=== PATIENT | female | born 1950 | race Caucasian/White ===

== ENCOUNTER → 2016-07-21 | Outpatient (CLI) | payer OTHER ==
[~2016-07-21] MED LIST: ASCA500 PO; ASPI-232 PO; ATOR10TA88 PO; CLOP1TAB15 PO; ESTR0.5T5 PO; FLUO40CA8 PO; LEVO112T2 PO; NAPR1TAB9 PO; VSC/5 PO
--- NOTE | 2016-07-21 11:00 | DIAGNOSTIC IMAGING REPORT ---
MRI LUMBAR SPINE W/O CONTRAST CLINICAL HISTORY: Low back pain, and gluteal numbness. TECHNIQUE: Sagittal and axial T1, T2 and STIR images were obtained. COMPARISON STUDY: No previous studies for comparison. OBSERVATIONS: The vertebral bodies and posterior elements appear intact. There is no abnormal bony signal present to suggest a marrow replacement process. L1-2: No disc protrusions or extrusions. No evidence of spinal canal or neural foraminal compromise. L2-3: There is a mild circumferential disc bulge. There is no evidence of significant spinal or foraminal stenosis L3-4: There is a mild circumferential disc bulge. There is slight narrowing of the AP diameter of the spinal canal. There is no significant foraminal narrowing L4-5: There is a mild circumferential disc bulge. There is mild facet joint arthropathy. There is mild spinal canal narrowing. There is no significant foraminal narrowing. L5-S1: There is a minimal circumferential disc bulge. There is no evidence of significant spinal or foraminal stenosis. The conus medullaris and cauda equina appear normal. IMPRESSION: Multilevel spondylitic changes with multilevel disc bulges. Minor spinal canal narrowing at the L3-4, and L4-5 levels. Electronically signed by: Dean Carrizales M.D. 07/21/2016 10:59 AM Dictated Date/Time: 07/21/2016 10:55 AM
== END | disposition home or self-care (01) ==
LOC: C.MRI 09:37
PROVIDERS: ATTEND Orthopaedic Surgery Orthopaedic Surgery of the Spine
DX: M54.5 Low back pain (principal)

== ENCOUNTER → 2017-01-09 | Outpatient (CLI) | payer OTHER ==
--- NOTE | 2017-01-09 15:51 | MAMMOGRAPHY REPORT ---
BILATERAL DIGITAL SCREENING MAMMOGRAM WITH CAD: 01/09/2017 CLINICAL HISTORY: Routine screening. Patient has no complaints. TECHNIQUE: Bilateral CC and MLO views were obtained. Current study was also evaluated with a Comput er Aided Detection (CAD) system. COMPARISON: Comparison is made to exams dated: 12/08/2015 mammogram, 12/17/2013 mammogram, 09/14/2012 ma mmogram, 06/09/2011 ultrasound, 06/09/2011 mammogram, and 11/11/2010 mammogram - [facility] ter. BREAST COMPOSITION: The tissue of both breasts is almost entirely fatty. FINDINGS: The breast parenchymal pattern is similar to prior mammograms. No suspicious mass, archite ctural distortion or cluster of microcalcifications is seen. IMPRESSION: ACR BI-RADS CATEGORY 1: NEGATIVE There is no mammographic evidence of malignancy. A 1 year screening mammogram is recommended. The pa tient will receive written notification of the results. Approximately 10% of breast cancers are not detected with mammography. A negative mammographic report should not delay biopsy if a clinically suggestive mass is present. Jo Clement M.D. ay/:01/09/2017 08:32:00 Story Writer: Annelise Woodruff, [facility] letter sent: Normal 1/2 BI-RADS Code: ACR BI-RADS Category 1: Negative
== END | disposition home or self-care (01) ==
LOC: C.MAMM 07:32
PROVIDERS: ATTEND Family Medicine
DX: Z12.31 Encounter for screening mammogram for malignant neoplasm of breast (principal)

== ENCOUNTER 2017-03-21 16:12 | Emergency (ER) | payer OTHER ==
[~2017-03-21] VITALS: Ht 160 cm; Wt 70.5 kg
[~2017-03-21 16:12] MED LIST changes: +ATOR10TA82 PO; -ATOR10TA88 PO
[2017-03-21 16:18] VITALS: TEMP 36.5; Ht 160 cm; Wt 70.5 kg
[2017-03-21] MEDS ORDERED: HYDROCODONE/ACETAMOPHEN 5/325MG TAB PO STA (16:25)
[2017-03-21] MEDS ORDERED: CALC500T72 PO (16:37)
--- NOTE | 2017-03-21 16:58 | DIAGNOSTIC IMAGING REPORT ---
R WRIST MIN 3 VIEWS ROUTINE CLINICAL HISTORY: wrist injury/fall trauma. Pain. COMPARISON: None. DISCUSSION: Severe degenerative change throughout the right wrist. Degenerative sclerosis of the articular services throughout. There is no evidence for soft tissue swelling. No evidence for fracture or dislocation. IMPRESSION: Severe degenerative change. No acute bony abnormality. The above report was generated using voice recognition software. It may contain grammatical, syntax or spelling errors. Electronically signed by: Vladislav Espana M.D. 03/21/2017 4:57 PM Dictated Date/Time: 03/21/2017 4:55 PM
--- NOTE | 2017-03-21 17:15 | EMERGENCY ROOM VISIT NOTE ---
ED Visit Note First contact with patient: 16:19 CHIEF COMPLAINT: Right wrist injury HISTORY OF PRESENT ILLNESS: This 66-year-old female presents to the ER with chief complaint that she got out of bed at 4:00 this morning and fell injuring her right wrist. The patient denies a loss of consciousness or any other injuries. She does not know if she hit her right wrist against a chair or if she tried to catch herself. The patient denies any numbness and tingling in her finger. The patient does admit to prior fracture in her right wrist years ago. She has seen [facility] in the past for other orthopedic needs. She is right-hand dominant. REVIEW OF SYSTEMS: 6 system review was performed and was negative unless stated otherwise in history of present illness. PMH: The patient is healthy; heart disease, hysterectomy, thyroidectomy, knee surgery SOCIAL HISTORY: Patient lives with her . The patient admits to tobacco use but denies any alcohol use. PHYSICAL EXAM: Vital Signs: Were reviewed Reviewed Nurse's notes. GEN.: 66-year -old white female appears in no acute distress. MENTAL Status: Alert and oriented 3. RIGHT WRIST: No gross bony deformity noted. No erythema or edema noted. The patient is tender to palpation over the ulnar aspect of the wrist joint. Limited range of motion secondary to pain. Sensation is intact in the hand. EMERGENCY DEPARTMENT COURSE: The patient was evaluated. The patient was given Posey 5/325 mg one tablet by mouth for pain. X-ray of the right wrist was ordered to by the radiologist and myself. DIAGNOSTICS:R WRIST MIN 3 VIEWS ROUTINE CLINICAL HISTORY: wrist injury/fall trauma. Pain. COMPARISON: None. DISCUSSION: Severe degenerative change throughout the right wrist. Degenerative sclerosis of the articular services throughout. There is no evidence for soft tissue swelling. No evidence for fracture or dislocation. IMPRESSION: Severe degenerative change. No acute bony abnormality. The above report was generated using voice recognition software. It may contain grammatical, syntax or spelling errors. Electronically signed by: Vladislav Espana M.D. 03/21/2017 4:57 PM The patient was informed of the findings. The patient was placed in a wrist lacer splint. The patient was discharged home with her son driving. DIAGNOSIS: Right wrist contusion DISCHARGE INSTRUCTIONS AND TREATMENT: Ice to the swollen area frequently over the next 2 days. Keep arm elevated whenever possible. Ibuprofen, 600 mg every 6 hours if needed for pain. Wear the wrist lacer splint until pain is tolerable without it. If symptoms are not improving in 4-5 days, follow-up with your family doctor or orthopedics. 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: Chronic (2) Peripheral vascular disease Status: Chronic Surgical Problems: (1) History of hysterectomy Status: Resolved (2) History of partial thyroidectomy Status: Resolved (3) History of tubal ligation Status: Resolved Current/Historical Medications Scheduled Atorvastatin (Lipitor), 10 MG PO DAILY Calcium Ascorbate (Vitamin C), 500 MG PO DAILY Clopidogrel (Plavix), 75 MG PO DAILY Fluoxetine (Prozac), 40 MG PO DAILY Levothyroxine Sodium (Synthroid), 112 MCG PO DAILY Scheduled PRN Naproxen (Aleve), 440 MG PO Q4 PRN for Headache or Pain Miscellaneous Medications Aspirin (Aspir-81), 81 MG PO Allergies Coded Allergies: No Known Allergies (Unverified , 04/12/13) Vital Signs Date Time Temp Pulse Resp B/P (MAP) Pulse Ox O2 Delivery O2 Flow Rate FiO2 03/21/17 16:18 36.5 83 18 145/75 95 Room Air Medications Administered Medications (Trade) Dose Ordered Sig/Tami Route Start Time Stop Time Status Last Admin Dose Admin Acetaminophen/ Hydrocodone Bitart (Posey 5/325 Tab) 1 tab NOW STAT PO 03/21/17 16:25 03/21/17 16:26 DC 03/21/17 16:41 1 TAB Departure Information Referrals Susy Bates D.O. (PCP) Patient Instructions [facility]
[2017-03-21 17:36] VITALS: BP 135/71; PULSE 80; O2SAT 96
== END 2017-03-21 17:42 | disposition home or self-care (01) ==
LOC: C.EDB 16:13 → C.EDD 17:42
DX: S60.211A Contusion of right wrist, initial encounter (principal); W19.XXXA Unspecified fall, initial encounter; I51.9 Heart disease, unspecified; I73.9 Peripheral vascular disease, unspecified; F17.200 Nicotine dependence, unspecified, uncomplicated; Z87.81 Personal history of (healed) traumatic fracture; Z90.710 Acquired absence of both cervix and uterus; Z98.51 Tubal ligation status; Z98.890 Other specified postprocedural states; Z79.899 Other long term (current) drug therapy

== ENCOUNTER → 2017-07-12 | Outpatient (CLI) | payer OTHER ==
[~2017-07-12] MED LIST changes: -ASCA500 PO; +CALC500T72 PO; -ESTR0.5T5 PO; -VSC/5 PO
--- NOTE | 2017-07-12 13:18 | DIAGNOSTIC IMAGING REPORT ---
PET/CT HISTORY: NON SMALL CELL LUNG CANCER TECHNIQUE: PET/CT was performed from the base of the skull through the pelvis following the intravenous administration of 15.98 mCi of F18-FDG. Non-contrast CT imaging was performed over the same range without breath-hold for attenuation correction of PET images and anatomic correlation, but not for primary interpretation as it is not of standard diagnostic quality. CT DOSE: COMPARISON: None. FINDINGS: HEAD AND NECK: Symmetric FDG perfusion within the brain. There are few lower cervical/supraclavicular FDG avid lymph nodes. Dominant left supraclavicular lymph node measures 1.2 cm and demonstrates an SUV max of 7. Dominant right lower cervical lymph node measures 8 mm demonstrates an SUV max of 3. CHEST: Bilateral superior mediastinal lymphadenopathy demonstrating an SUV max of 7.8. There is no FDG avid 1.5 cm anterior mediastinal lymph node demonstrating an SUV max of 4.4. Right peritracheal lymphadenopathy with the largest lymph node measuring 2 cm demonstrating an SUV max of 9.8. There is also right hilar lymphadenopathy with an SUV max of 6. Subcarinal lymphadenopathy demonstrated to be max of 9.3. Large FDG avid right lower lobe mass which measures 5.7 x 5.4 cm. This demonstrates an SUV max of 14. There is no adjacent FDG avid 1.4 cm nodule within the superior segment of the right lower lobe. There is a 5 mm solid nodule within the left lower lobe on image 91. This does not demonstrate abnormal FDG uptake but is likely below the partial for PET imaging. Multiple scattered groundglass nodular densities seen throughout the lungs. These do not demonstrate abnormal FDG uptake but are likely also below the threshold for PET imaging. ABDOMEN/PELVIS: No FDG avid hepatic or splenic masses. Normal adrenal glands. The kidneys and pancreas are unremarkable. Moderate degenerative uptake associated with a few periportal lymph nodes. Dominant periportal lymph node on image 133 measures 8 mm and demonstrates an SUV max of 3. MUSCULOSKELETAL: There is no FDG-avid or destructive bone lesion. IMPRESSION: 1. A 5.7 x 5.4 cm FDG avid right lower lobe mass. 2. There is an additional 1.4 cm FDG avid nodule within the right lower lobe consistent with a metastatic focus. 3. Bilateral lower cervical/supraclavicular, mediastinal, and right hilar lymphadenopathy with associated FDG uptake consistent with metastatic disease. 4. A 5 mm solid nodule within the left lower lobe. This does not demonstrate FDG uptake but is likely below the threshold for PET imaging. Follow-up is recommended. 5. Multiple additional scattered groundglass nodular densities seen throughout the lungs. This favors inflammatory/infectious change. However, this bears watching on future examinations to exclude the less likely possibility of neoplastic disease. 6. A few periportal lymph nodes which are not significantly enlarged but demonstrate mild FDG uptake. This is nonspecific. Electronically signed by: Mele Camacho M.D. 07/12/2017 1:16 PM Dictated Date/Time: 07/12/2017 12:42 PM
== END | disposition home or self-care (01) ==
LOC: C.PET 08:53
PROVIDERS: ATTEND Family Medicine
DX: C79.9 Secondary malignant neoplasm of unspecified site (principal); C34.91 Malignant neoplasm of unspecified part of right bronchus or lung

== ENCOUNTER → 2017-07-17 | Outpatient (CLI) | payer OTHER ==
[~2017-07-17] MED LIST changes: +GADAVIST IV PRN; +LEVO137T3 PO
--- NOTE | 2017-07-17 19:59 | DIAGNOSTIC IMAGING REPORT ---
MRI OF THE BRAIN WITHOUT AND WITH IV CONTRAST CLINICAL HISTORY: Headache, blurred vision, lung carcinoma. COMPARISON STUDY: 07/27/2012 TECHNIQUE: MRI of the brain was performed from the vertex to the skull base utilizing various T1 and T2 weighted sequences. Following the IV administration of 7 mL of Gadavist contrast, additional enhanced images were obtained. FINDINGS: Sagittal T1, axial diffusion, proton density and T2 weighted axial, coronal FLAIR, and pre and post axial T1-weighted images were acquired. These were supplemented with post gadolinium coronal T1 weighted images. No intra or extra-axial mass lesions are visualized. Axial diffusion-weighted images reveal no evidence of acute or subacute infarction. There is no evidence of ventricular dilatation. Proton density T2-weighted and FLAIR images reveal no significant intraparenchymal signal abnormalities There are no abnormal flow voids. There is no evidence of pathologic enhancement. There are mild chronic inflammatory changes within the right sphenoid IMPRESSION: 1. No acute intracranial findings 2. No evidence of intracranial metastasis Electronically signed by: Dean Carrizales M.D. 07/17/2017 7:58 PM Dictated Date/Time: 07/17/2017 7:55 PM
== END | disposition home or self-care (01) ==
LOC: C.MRI 18:54
PROVIDERS: ATTEND Internal Medicine Hematology & Oncology
DX: C34.31 Malignant neoplasm of lower lobe, right bronchus or lung (principal)

== ENCOUNTER → 2017-08-07 | Day surgery (SDC) | payer OTHER ==
[2017-08-04 10:26] VITALS: BMI 27.0
[~2017-08-07] VITALS: Ht 161.3 cm; Wt 70.5 kg
[~2017-08-07] MED LIST changes: +ACETAMINOPHEN 325 MG TAB PO PRN; +ASCO1CAP3 PO; +ATROPINE SULFATE 0.1 MG/ML 5ML SYR IV PRN; +BACITRACIN OINT 15 GM TUBE ONE; +BUPIVACAINE 0.5 % 5 MG/1 ML MPF 30ML VIAL ONE; -CALC500T72 PO; +CEFAZOLIN SOD 2000MG/15 ML IV PUSH IV ONE; +EpHEDrine SULFATE INJ 50 MG/ML AMP IV PRN; +FENTANYL CITRATE INJ 50 MCG/1 ML 2 ML VIAL ONE; -GADAVIST IV PRN; +LACTATED RINGER'S 1000ML 1,000 ML IV SCH; -LEVO112T2 PO; +LIDOCAINE HCL 1% 20 ML VIAL ONE; +LIDOCAINE HCL 2% 2 ML VIAL (20MG/ML) ONE; +LORA-741 PO; +MIDAZOLAM HCL 1 MG/ML 2ML VIAL ONE; +MoRPHine SULFATE 2 MG/ML CARP IV PRN; +MoRPHine SULFATE 4 MG/ML 1 ML CARP\\VIAL IV PRN; -NAPR1TAB9 PO; +ONDANSETRON INJ 2 MG/ML 2 ML VIAL IV PRN; +ONDANSETRON INJ 2 MG/ML 2 ML VIAL ONE; +OXYC-57 PO; +OXYCODONE/ACETAMINOPHEN 5-325 TAB PO PRN; +PROPOFOL IV EMULSION 10 MG/ML 20 ML VIAL IV ONE
[2017-08-07 07:32] VITALS: BP 126/72; PULSE 72; TEMP 36.6; O2SAT 96; Ht 161.3 cm; Wt 70.5 kg
--- NOTE | 2017-08-07 08:59 | History & Physical Bridge Note ---
H&P Re-Evaluation Bridge Note: I have examined the patient, reviewed the History & Physical and in the interval since the performance of the History & Physical I have noted the following changes of clinical significance: No changes noted
--- NOTE | 2017-08-07 10:17 | [facility] Post Operative Brief Note ---
Immediate Operative Summary Operative Date Aug 07, 2017. Pre-Operative Diagnosis Diagnosis Lung Cancer Post-Operative Diagnosis Diagnosis Lung Cancer Procedure(s) Performed A-Port Catheter Insertion Surgeon Dr. Evelin Morales Mold Injector Surgeon(s) Leah Mcknight PA-C Estimated Blood Loss 5 ml Findings Consistent with Post-Op Diagnosis Fluids (cc crystalloids) 500ml Specimens No specimens per surgeon. Drains None Anesthesia Type MAC Complication(s) none Disposition Accompanied Pt To Recover: yes Disposition: Recovery Room / PACU
--- NOTE | 2017-08-07 10:27 | Discharge Instructions ---
Discharge Instructions Date of Service Aug 07, 2017. Admission Reason for Admission: Circulatory System Disorder Discharge Discharge Diagnosis / Problem: lung cancer Discharge Goals Goal(s): Decrease discomfort, Improve function Activity Recommendations Activity Limitations: per Instructions/Follow-up section No heavy lifting or repetitive movement with left arm for one week, avoid lifting left arm above head for one week No strenuous activity for 1 week No submerging incision underwater for 2 weeks (no bathing, swimming, or hot tubs ) No driving while taking narcotic pain medication or until you are pain free . Instructions / Follow-Up Instructions / Follow-Up You may shower in 4 days, sponge bath and wash hair in meantime Leave dressing on for 4 days and then remove and shower There are steri strips on incision, remove them in 7 days IF they plan to use your port for chemotherapy sooner than above recommendation that is fine just keep incision clean/dry/ and covered You will be given Narcotic pain medication as needed for moderate to severe pain , you may take extra strength Ibuprofen/Tylenol as needed for mild pain. Narcotic pain medication may make you drowsy and can cause constipation. Follow-up in surgical office in 1 week, please call office at [phone] if you do not already have an appointment Current Hospital Diet Patient's current hospital diet: Discharge Diet Recommended Diet: Regular Diet Procedures Procedures Performed: A-Port Catheter Insertion Pending Studies Studies pending at discharge: no Medical Emergencies . Who to Call and When: Medical Emergencies: If at any time you feel your situation is an emergency, please call 911 immediately. . Non-Emergent Contact Non-Emergency issues call your: Primary Care Provider, Surgeon Call Non-Emergent contact if: you have a fever, temperature is above 101, your pain is not controlled, your pain is worsening, your pain is unusual for you, wound has increased drainage, wound has increased redness, wound has increased pain . "Provider Documentation" section prepared by Leah Mcknight. . [place] Drug Monitoring Program Search Results: patient reviewed within database, no issues identified
--- NOTE | 2017-08-07 10:39 | DIAGNOSTIC IMAGING REPORT ---
CHEST ONE VIEW PORTABLE HISTORY: 66 years-old Female s/p left subclavian aport insertion status post placement of a left subclavian Jzzspa-k-Qafz catheter COMPARISON: PET CT 07/12/2017, CT chest 07/01/2017 TECHNIQUE: Portable AP view of the chest FINDINGS: Status post placement of a left subclavian Upcako-m-Hmtm catheter with distal tip projecting to the right of midline in the region of the mid SVC. No postprocedural pneumothorax identified. Cardiac silhouette is within normal limits. Lungs are mildly hypoinflated. The left lung is generally clear. Masslike opacity of the right lower lobe with suspected trace right pleural effusion. Bones of the chest appear grossly intact. IMPRESSION: 1. Status post placement of a left subclavian Ocxvie-e-Nbpm catheter with distal tip terminating in the region of the mid SVC. No postprocedural pneumothorax identified. 2. Opacity of the right lower lobe likely correlates with large mass seen on comparison PET CT with suspected trace right pleural effusion. The above report was generated using voice recognition software. It may contain grammatical, syntax or spelling errors. Electronically signed by: Matteo Walker M.D. 08/07/2017 10:38 AM Dictated Date/Time: 08/07/2017 10:36 AM
--- NOTE | 2017-08-07 10:59 | Anesthesiology Progress Note ---
Anesthesia Post Op Note Date & Time Aug 07, 2017 at 10:59 Vital Signs Pain Intensity: 0 Vital Signs Past 12 Hours Date Time Temp Pulse Resp B/P (MAP) Pulse Ox O2 Delivery O2 Flow Rate FiO2 08/07/17 10:45 36.2 66 26 106/66 92 Room Air 08/07/17 10:40 36.2 69 27 108/59 92 Room Air 08/07/17 10:30 65 24 101/65 98 Nasal Cannula 2 08/07/17 10:24 36.6 62 16 115/53 95 Nasal Cannula 2 08/07/17 07:32 36.6 72 18 126/72 (90) 96 Room Air Notes Mental Status: alert / awake / arousable, participated in evaluation Pt Amnestic to Procedure: Yes Nausea / Vomiting: adequately controlled Pain: adequately controlled Airway Patency, RR, SpO2: stable & adequate BP & HR: stable & adequate Hydration State: stable & adequate Anesthetic Complications: no major complications apparent
[2017-08-07 11:00] VITALS: BP 113/54; PULSE 64; TEMP 36.7; O2SAT 92
[2017-08-07 11:30] VITALS: BP 102/60; PULSE 69; TEMP 36.8; O2SAT 94
--- NOTE | 2017-08-07 13:30 | OPERATIVE REPORT ---
DATE OF OPERATION: 08/07/2017 PREOPERATIVE DIAGNOSIS: Lung cancer, in need of port reinsertion. POSTOPERATIVE DIAGNOSIS: Lung cancer, in need of port reinsertion. OPERATION: Insertion of port on left subclavian vein. SURGEON: Evelin Morales MD. AUDIO VIDEO TECHNICIAN: Leah Mcknight PA-C. ANESTHESIA: Conscious sedation plus local. ESTIMATED BLOOD LOSS: About 5 mL. FINDINGS: Patent left subclavian vein. COMPLICATIONS: None. INDICATIONS FOR THE PROCEDURE: This is a 66 years old female with a diagnosis of lung cancer. Patient needs the port reinsertion for chemo. I did talk to the patient about the benefits, the risks and alternatives of procedure. I indicated the risks that may include but not limited such as bleeding, infection, injury to vessel, dysfunction of catheter, injury to the lung. Patient understands. She signed informed consent and I answered all questions. DETAILS OF PROCEDURE: We brought the patient to the OR, put the patient in the supine position. Patient received SCD on bilateral legs to prevent DVT. Also, patient received 2 grams Ancef IV for prophylactic antibiotic. Patient received conscious sedation by the anesthesiology. The left side of neck and upper chest was prepped and draped in routine sterile fashion. After time out, I injected the local anesthesia on the right upper chest with 1% lidocaine mixed with 0.5% Marcaine then I used a 15-gauge needle to puncture the subclavian vein and easy blood return. At first, we put the patient in Trendelenburg first then after that we punctured the vein and easy blood returned. Then passed the wire and used fluoro to confirm the wire go to the SVC. Then I removed the needle, created the pouch for the port. I made an incision about 3 cm and once we created the pouch then we sized the catheter and used a dilator sheath to pass the wire and remove the wire and they were sheathed again. Then we passed the catheter towards the sheath. Then we removed the sheath and connected the catheter to the port. I used a 2-0 Prolene to fix the port in the 3 points on the chest wall and then we did the fluoro guidance again, good position on the tip of the SVC and then we punctured the port and easy blood returned. Then we injected 10 mL normal saline with heparin. Hemostasis obtained, closed the incision by using 2-0 Vicryl subcutaneous layer, continue running, closed skin by using 4-0 Vicryl continue running. We put the dressing on. The patient tolerated the procedure well. After procedure, patient transferred to recovery room in stable condition and all the instrument, needle and sponge count correct x2 at the end of case and after procedure, I did talk to patient's family member about OR finding and procedure we did, they understand. I attest to the content of the Intraoperative Record and any orders documented therein. Any exceptions are noted below. RAFY
== END | disposition home or self-care (01) ==
LOC: C.ACU 07:13
PROVIDERS: ATTEND Surgery
DX: C34.31 Malignant neoplasm of lower lobe, right bronchus or lung (principal); I70.219 Atherosclerosis of native arteries of extremities with intermittent claudication, unspecified extremity; E89.0 Postprocedural hypothyroidism; E78.5 Hyperlipidemia, unspecified; F41.9 Anxiety disorder, unspecified; Z90.710 Acquired absence of both cervix and uterus; Z80.6 Family history of leukemia; Z82.49 Family history of ischemic heart disease and other diseases of the circulatory system; Z82.3 Family history of stroke; Z83.79 Family history of other diseases of the digestive system; Z83.3 Family history of diabetes mellitus; F17.200 Nicotine dependence, unspecified, uncomplicated; Z79.82 Long term (current) use of aspirin; Z79.02 Long term (current) use of antithrombotics/antiplatelets; J44.9 Chronic obstructive pulmonary disease, unspecified; I10 Essential (primary) hypertension

== ENCOUNTER 2017-08-21 11:01 | Inpatient (IN) | payer OTHER ==
[~2017-08-21] VITALS: Ht 162.6 cm; Wt 68.9 kg
[~2017-08-21 11:01] MED LIST changes: -ACETAMINOPHEN 325 MG TAB PO PRN; -ATROPINE SULFATE 0.1 MG/ML 5ML SYR IV PRN; -BACITRACIN OINT 15 GM TUBE ONE; -BUPIVACAINE 0.5 % 5 MG/1 ML MPF 30ML VIAL ONE; -CEFAZOLIN SOD 2000MG/15 ML IV PUSH IV ONE; -EpHEDrine SULFATE INJ 50 MG/ML AMP IV PRN; -FENTANYL CITRATE INJ 50 MCG/1 ML 2 ML VIAL ONE; -LACTATED RINGER'S 1000ML 1,000 ML IV SCH; -LIDOCAINE HCL 1% 20 ML VIAL ONE; -LIDOCAINE HCL 2% 2 ML VIAL (20MG/ML) ONE; -LORA-741 PO; -MIDAZOLAM HCL 1 MG/ML 2ML VIAL ONE; -MoRPHine SULFATE 2 MG/ML CARP IV PRN; -MoRPHine SULFATE 4 MG/ML 1 ML CARP\\VIAL IV PRN; +ONDA-170 PO; -ONDANSETRON INJ 2 MG/ML 2 ML VIAL IV PRN; -ONDANSETRON INJ 2 MG/ML 2 ML VIAL ONE; -OXYCODONE/ACETAMINOPHEN 5-325 TAB PO PRN; +PROC1TAB5 PO; -PROPOFOL IV EMULSION 10 MG/ML 20 ML VIAL IV ONE
[2017-08-21] MEDS ORDERED: DXM/4 PO (11:24)
[2017-08-21] MEDS ORDERED: SODIUM CHLORIDE 0.9% 1000ML 2,000 ML IV STA (11:29)
[2017-08-21] MEDS ORDERED: LIDOCAINE HCL 2% VISC SOLN 20 ML UDC PO STA (11:31)
[2017-08-21] MEDS ORDERED: ALUMINUM/MAGNESIUM SUSP 30 ML UDC PO STA (11:31)
--- NOTE | 2017-08-21 11:51 | DIAGNOSTIC IMAGING REPORT ---
CHEST ONE VIEW PORTABLE CLINICAL HISTORY: EVALUATE ALTERED MENTAL STATUS/WEAKNESS COMPARISON STUDY: PET/CT July 12, 2017 and chest radiograph August 07, 2017. FINDINGS: A left subclavian Kzqduk-c-Mveo is in place. There is no pneumothorax or pleural effusion. A 5.2 cm right lower lobe mass is again noted. There is no pneumothorax or pleural effusion. There is no evidence for pulmonary edema. Mild mediastinal widening is unchanged. IMPRESSION: Redemonstration of a 5.2 cm right lower lobe mass and mild mediastinal widening. Electronically signed by: Josiah Marquez M.D. 08/21/2017 11:49 AM Dictated Date/Time: 08/21/2017 11:48 AM
[2017-08-21 12:17] LABS: BASO % 0.2 %; BASO ABS # 0.02 K/uL (0-0.2); EOS % 2.5 %; HEMATOCRIT 41.7 % (37-47); HEMOGLOBIN 14.4 g/dL (12.0-16.0); IG# 0.02 K/uL (0.00-0.02); LYMPH % 10.5 %; LYMPH ABS # 0.85 K/uL (1.2-3.4); MEAN CELL VOLUME 88.2 fL (80-100); MEAN CORPUSCULAR HEMOGLOBIN 30.4 pg (25-34); MEAN CORPUSCULAR HGB CONC 34.5 g/dl (32-36); MEAN PLATELET VOLUME 9.1 fL (7.4-10.4); MONO % 4.6 %; MONO ABS # 0.37 K/uL (0.11-0.59); NEUT ABS # 6.64 K/uL (1.4-6.5); PLATELET COUNT 242 K/uL (130-400); RED CELL DISTRIBUTION WIDTH CV 14.2 % (11.5-14.5)
[2017-08-21 12:27] LABS: INR 0.9 (0.9-1.1); PTT PATIENT 26.6 SECONDS (21.0-31.0)
[2017-08-21 12:32] LABS: ALBUMIN 3.1 gm/dl (3.4-5.0); ALT/SGPT 21 U/L (12-78); AST/SGOT 10 U/L (15-37); BLOOD UREA NITROGEN 20 mg/dl (7-18); CALCIUM 8.4 mg/dl (8.5-10.1); CARBON DIOXIDE 28 mmol/L (21-32); CREATININE 0.89 mg/dl (0.60-1.20); GLUCOSE 97 mg/dl (70-99); POTASSIUM 4.4 mmol/L (3.5-5.1); SODIUM 134 mmol/L (136-145)
[2017-08-21 12:43] LABS: ALKALINE PHOSPHATASE 147 U/L (45-117); TOTAL PROTEIN 7.2 gm/dl (6.4-8.2)
[2017-08-21] MEDS ORDERED: ONDANSETRON INJ 2 MG/ML 2 ML VIAL IV PRN (14:45)
[2017-08-21] MEDS ORDERED: LIDOCAINE HCL 2% VISC SOLN 20 ML UDC MT PRN (14:45)
[2017-08-21] MEDS ORDERED: OXYC1TAB3 PO (14:56)
[2017-08-21] MEDS ORDERED: OXYCODONE HCL IR 5 MG TAB (IMMEDIATE RELEASE) PO PRN (15:00)
[2017-08-21] MEDS ORDERED: ACETAMINOPHEN IV 650 MG in EMPTY BAG 0 ML IV PRN (15:00)
--- NOTE | 2017-08-21 15:20 | History and Physical ---
History & Physical Date & Time of Service: Aug 21, 2017 at 14:57 Chief Complaint: Illness Primary Care Physician: Susy Bates D.O. History of Present Illness Source: patient, spouse, clinic records, hospital records The patient is a 66-year-old female with lung cancer, stage III, who is currently being treated with chemotherapy and radiation. Her radiation treatments started 2 weeks ago. As of 3 days ago she described having some loss of voice and feeling that food and liquids were getting stuck low down in her esophagus. This was associated with substernal chest pain in that area without radiation. This was also associated with pain with swallowing. She subsequently has not eaten or drank much in the last 3 days and developed some lightheadedness today as well as some generalized weakness prompting ER visit. She denies any associated symptoms with the chest pain including no sweating or shortness of breath. She does have a history of peripheral vascular disease but no history of CAD and is currently taking aspirin and Plavix as well as Lipitor. She is undergoing chemotherapy with carboplatin and paclitaxel weekly with last dose on 08/17. She was presenting to radiation oncology this morning but did not receive the treatment and was sent to the ER instead. Upon arrival to the ER she was noted to have a blood pressure of 97 over's T4 and a heart rate of 83 she was saturating well on room air and was afebrile. She was given IV fluids with an improvement in her blood pressure into the 120s systolic. She otherwise denies any fever, chills, nausea, vomiting, diarrhea, changes in her stool, headaches, or recent illnesses. She is still an active smoker. 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 Status: Chronic (2) Lung cancer Status: Chronic (3) Peripheral vascular disease Status: Chronic Surgical Problems: (1) History of hysterectomy Status: Resolved (2) History of partial thyroidectomy Status: Resolved (3) History of tubal ligation Status: Resolved Family History FH: CAD (coronary artery disease) FATHER FH: leukemia MOTHER Social History Smoking Status: Current Every Day Smoker Smokeless Tobacco Use: No Alcohol Use: none Drug Use: none Marital Status: Housing status: lives alone Occupational Status: retired Immunizations History of Influenza Vaccine: Unknown History of Tetanus Vaccine?: Yes History of Pneumococcal: No History of Hepatitis B Vaccine: Yes Allergies Coded Allergies: No Known Allergies (Unverified , 08/21/17) Home Medications Scheduled Ascorbic Acid (Vitamin C), 500 MG PO QAM Aspirin (Aspir-81), 81 MG PO QAM Atorvastatin (Lipitor), 20 MG PO QAM Clopidogrel (Plavix), 75 MG PO QAM Dexamethasone (Decadron), 1 DOSE PO UD Fluoxetine (Prozac), 40 MG PO QAM Levothyroxine Sodium (Levothyroxine Sodium), 137 MCG PO QAM Scheduled PRN Ondansetron Hcl (Zofran), 8 MG PO Q8 PRN for Nausea Oxycodone Immediate Rel Tab (Roxicodone Ir), 1 TAB PO Q6H PRN for Pain Prochlorperazine Maleate (Compazine), 10 MG PO Q6 PRN for Nausea Review of Systems At least ten systems were reviewed and negative except as indicated in HPI. Physical Exam Vital Signs Date Time Temp Pulse Resp B/P (MAP) Pulse Ox O2 Delivery O2 Flow Rate FiO2 08/21/17 14:46 86 08/21/17 14:41 90 22 93 Room Air 08/21/17 14:31 123/102 08/21/17 14:11 81 24 97 Room Air 08/21/17 14:01 118/71 08/21/17 13:41 85 14 97 Room Air 08/21/17 13:36 81 26 94 Room Air 08/21/17 13:31 110/81 08/21/17 13:06 86 20 97 Room Air 08/21/17 13:01 107/66 08/21/17 12:36 84 24 93 Room Air 08/21/17 12:31 110/63 08/21/17 12:06 98 20 94 Room Air 08/21/17 12:01 87 26 101/69 91 Room Air 08/21/17 11:31 86 16 96/68 95 Room Air 08/21/17 11:15 87 08/21/17 11:10 97/64 08/21/17 11:05 93 Room Air 08/21/17 11:05 36.8 83 15 97/64 93 Room Air General Appearance: WD/WN, + mild distress (Generalized malaise) Head: normocephalic, atraumatic Eyes: normal inspection, PERRL, + pertinent finding (Injected conjunctivae bilaterally, nonicteric sclerae) ENT: normal ENT inspection, hearing grossly normal, pharynx normal Neck: supple, no adenopathy, no JVD, trachea midline Respiratory/Chest: lungs clear, normal breath sounds, no respiratory distress, no accessory muscle use, + pertinent finding (Tenderness in the midsternal region to palpation) Cardiovascular: regular rate, rhythm, no edema, no gallop, no JVD, no murmur, normal peripheral pulses Abdomen/GI: normal bowel sounds, non tender, soft, no organomegaly Back: normal inspection Extremities/Musculoskelatal: normal inspection, no calf tenderness, no pedal edema, normal range of motion Neurologic/Psych: fitter and turner II-XII nml as tested, no motor/sensory deficits, alert, normal mood/affect, oriented x 3 Skin: normal color, warm/dry, no rash Diagnostics Laboratory Results 08/21/17 11:55 Red Blood Count 4.73, Mean Corpuscular Volume 88.2, Mean Corpuscular Hemoglobin 30.4, Mean Corpuscular Hemoglobin Concent 34.5, Mean Platelet Volume 9.1, Neutrophils (%) (Auto) 82.0, Lymphocytes (%) (Auto) 10.5, Monocytes (%) (Auto) 4.6, Eosinophils (%) (Auto) 2.5, Basophils (%) (Auto) 0.2, Neutrophils # (Auto) 6.64, Lymphocytes # (Auto) 0.85, Monocytes # (Auto) 0.37, Eosinophils # (Auto) 0.20, Basophils # (Auto) 0.02 08/21/17 11:55 Test 08/21/17 11:55 White Blood Count 8.10 K/uL (4.8-10.8) Red Blood Count 4.73 M/uL (4.2-5.4) Hemoglobin 14.4 g/dL (12.0-16.0) Hematocrit 41.7 % (37-47) Mean Corpuscular Volume 88.2 fL (80-100) Mean Corpuscular Hemoglobin 30.4 pg (25-34) Mean Corpuscular Hemoglobin Concent 34.5 g/dl (32-36) Platelet Count 242 K/uL (130-400) Mean Platelet Volume 9.1 fL (7.4-10.4) Neutrophils (%) (Auto) 82.0 % Lymphocytes (%) (Auto) 10.5 % Monocytes (%) (Auto) 4.6 % Eosinophils (%) (Auto) 2.5 % Basophils (%) (Auto) 0.2 % Neutrophils # (Auto) 6.64 K/uL (1.4-6.5) Lymphocytes # (Auto) 0.85 K/uL (1.2-3.4) Monocytes # (Auto) 0.37 K/uL (0.11-0.59) Eosinophils # (Auto) 0.20 K/uL (0-0.5) Basophils # (Auto) 0.02 K/uL (0-0.2) RDW Standard Deviation 46.0 fL (36.4-46.3) RDW Coefficient of Variation 14.2 % (11.5-14.5) Immature Granulocyte % (Auto) 0.2 % Immature Granulocyte # (Auto) 0.02 K/uL (0.00-0.02) Prothrombin Time 9.8 SECONDS (9.0-12.0) Prothromb Time International Ratio 0.9 (0.9-1.1) Activated Partial Thromboplast Time 26.6 SECONDS (21.0-31.0) Partial Thromboplastin Ratio 1.0 Anion Gap 5.0 mmol/L (3-11) Estimated GFR () 79.4 Estimated GFR (Non- 68.5 BUN/Creatinine Ratio 22.9 (10-20) Calcium Level 8.4 mg/dl (8.5-10.1) Magnesium Level 2.3 mg/dl (1.8-2.4) Total Bilirubin 0.4 mg/dl (0.2-1) Aspartate Amino Transf (AST/SGOT) 10 U/L (15-37) Alanine Aminotransferase (ALT/SGPT) 21 U/L (12-78) Alkaline Phosphatase 147 U/L (45-117) Troponin I < 0.015 ng/ml (0-0.045) Total Protein 7.2 gm/dl (6.4-8.2) Albumin 3.1 gm/dl (3.4-5.0) Globulin 4.1 gm/dl (2.5-4.0) Albumin/Globulin Ratio 0.8 (0.9-2) Thyroid Stimulating Hormone (TSH) 9.350 uIu/ml (0.300-4.500) Free Thyroxine 0.76 ng/dl (0.80-1.60) Results Past 24 Hours Test 08/21/17 11:55 Range/Units White Blood Count 8.10 4.8-10.8 K/uL Red Blood Count 4.73 4.2-5.4 M/uL Hemoglobin 14.4 12.0-16.0 g/dL Hematocrit 41.7 37-47 % Mean Corpuscular Volume 88.2 80-100 fL Mean Corpuscular Hemoglobin 30.4 25-34 pg Mean Corpuscular Hemoglobin Concent 34.5 32-36 g/dl Platelet Count 242 130-400 K/uL Mean Platelet Volume 9.1 7.4-10.4 fL Neutrophils (%) (Auto) 82.0 % Lymphocytes (%) (Auto) 10.5 % Monocytes (%) (Auto) 4.6 % Eosinophils (%) (Auto) 2.5 % Basophils (%) (Auto) 0.2 % Neutrophils # (Auto) 6.64 1.4-6.5 K/uL Lymphocytes # (Auto) 0.85 1.2-3.4 K/uL Monocytes # (Auto) 0.37 0.11-0.59 K/uL Eosinophils # (Auto) 0.20 0-0.5 K/uL Basophils # (Auto) 0.02 0-0.2 K/uL RDW Standard Deviation 46.0 36.4-46.3 fL RDW Coefficient of Variation 14.2 11.5-14.5 % Immature Granulocyte % (Auto) 0.2 % Immature Granulocyte # (Auto) 0.02 0.00-0.02 K/uL Prothrombin Time 9.8 9.0-12.0 SECONDS Prothromb Time International Ratio 0.9 0.9-1.1 Activated Partial Thromboplast Time 26.6 21.0-31.0 SECONDS Partial Thromboplastin Ratio 1.0 Sodium Level 134 136-145 mmol/L Potassium Level 4.4 3.5-5.1 mmol/L Chloride Level 101 98-107 mmol/L Carbon Dioxide Level 28 21-32 mmol/L Anion Gap 5.0 3-11 mmol/L Blood Urea Nitrogen 20 7-18 mg/dl Creatinine 0.89 0.60-1.20 mg/dl Estimated GFR () 79.4 Estimated GFR (Non- 68.5 BUN/Creatinine Ratio 22.9 10-20 Random Glucose 97 70-99 mg/dl Calcium Level 8.4 8.5-10.1 mg/dl Magnesium Level 2.3 1.8-2.4 mg/dl Total Bilirubin 0.4 0.2-1 mg/dl Aspartate Amino Transf (AST/SGOT) 10 15-37 U/L Alanine Aminotransferase (ALT/SGPT) 21 12-78 U/L Alkaline Phosphatase 147 45-117 U/L Troponin I < 0.015 0-0.045 ng/ml Total Protein 7.2 6.4-8.2 gm/dl Albumin 3.1 3.4-5.0 gm/dl Globulin 4.1 2.5-4.0 gm/dl Albumin/Globulin Ratio 0.8 0.9-2 Thyroid Stimulating Hormone (TSH) 9.350 0.300-4.500 uIu/ml Free Thyroxine 0.76 0.80-1.60 ng/dl Diagnostic Radiology CHEST ONE VIEW PORTABLE CLINICAL HISTORY: EVALUATE ALTERED MENTAL STATUS/WEAKNESS COMPARISON STUDY: PET/CT July 12, 2017 and chest radiograph August 07, 2017. FINDINGS: A left subclavian [id number] is in place. There is no pneumothorax or pleural effusion. A 5.2 cm right lower lobe mass is again noted. There is no pneumothorax or pleural effusion. There is no evidence for pulmonary edema. Mild mediastinal widening is unchanged. IMPRESSION: Redemonstration of a 5.2 cm right lower lobe mass and mild mediastinal widening. EKG SR90, TWI in anterior leads, no ST changes. Impression Assessment and Plan 66-year-old female presents with generalized weakness, difficulty swallowing, pain with swallowing for the last 3 days 1. 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 Will continue with supportive care measures at this time including nothing by mouth except medications,. Will institute therapy with liquid Vicodin as needed, viscous lidocaine as needed, Protonix IV daily, IV Tylenol as needed. As patient is describing a food bolus feeling like it gets stuck in lower esophagus, will order barium at this time. GI was consulted for consideration of endoscopy. 2. Chest pain-this is likely associated with #1, however, with history of peripheral arterial disease and T-wave inversions that are new on EKG will trend serial enzymes and monitor her on telemetry overnight. Repeat EKG in a.m. 3. Generalized weakness-likely secondary to decreased oral intake. Continue supportive care measures, PT/OT evaluation prior to discharge. 4. Hypothyroidism-TSH slightly elevated however will not adjust outpatient dosage inpatient. Will institute Synthroid IV at 50% home dose. 5. Peripheral arterial disease-continue aspirin, Plavix, Lipitor per home regimen. 6. Lung cancer, stage III-we discussed continuing chemotherapy with oncology team. Patient sees Dr. Mcmillan. Would touch base with radiation oncology as patient's symptoms improved. DVT prophylaxis-Lovenox Full code as discussed with patient and her on admission Disposition-tele[facility] Res[facility] Status VTE Prophylaxis Will order VTE Prophylaxis: Yes
--- NOTE | 2017-08-21 15:32 | EMERGENCY ROOM VISIT NOTE ---
History Report prepared by Sylvia: Misha Severino Under the Supervision of: Dr. Reji Lopez M.D. First contact with patient: 11:24 Chief Complaint: WEAKNESS Stated Complaint: ILLNESS Nursing Triage Summary: Pt. arrives by wheelchair from radiation/oncology. She reports worsening of weakness, dehydration, unsteadiness, weakness, trouble swallowing (liquids and solids), and chest discomfort that has worsened since Monday. History of Present Illness The patient is a 66 year old female who presents to the Emergency Room with complaints of constant throat pain s/p radiation treatment occurring three days ago. The patient is currently being treated for stage 3 lung cancer. She is currently receiving chemotherapy (most recent was four days ago) and radiation. Her radiation treatments irritate her throat and make it difficult for her to speak. The patient currently complains of generalized weakness. She was scheduled for radiation today, but was referred to the ED instead due to her symptoms. She reports feeling dehydrated due to her difficulty swallowing. The patient states that her pain increases to a 10/10 with swallowing. She denies urinary symptoms, diarrhea, or fevers. Source of History: patient Onset: A few days ago Position: throat Symptom Intensity: 10/10 with swallowing Timing: constant Modifying Factors (Worsening): other (swallowing) Associated Symptoms: + weakness (generalized ), No fevers, No diarrhea, No urinary symptoms Review of Systems See HPI for pertinent positives & negatives. A total of 10 systems reviewed and were otherwise negative. 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 Social History Smoking Status: Current Every Day Smoker Marital Status: Occupation Status: employed Current/Historical Medications Scheduled Ascorbic Acid (Vitamin C), 500 MG PO QAM Aspirin (Aspir-81), 81 MG PO QAM Atorvastatin (Lipitor), 20 MG PO QAM Clopidogrel (Plavix), 75 MG PO QAM Dexamethasone (Decadron), 1 DOSE PO UD Fluoxetine (Prozac), 40 MG PO QAM Levothyroxine Sodium (Levothyroxine Sodium), 137 MCG PO QAM Scheduled PRN Ondansetron Hcl (Zofran), 8 MG PO Q8 PRN for Nausea Oxycodone Immediate Rel Tab (Roxicodone Ir), 1 TAB PO Q6H PRN for Pain Prochlorperazine Maleate (Compazine), 10 MG PO Q6 PRN for Nausea Allergies Coded Allergies: No Known Allergies (Unverified , 08/21/17) Physical Exam Vital Signs Date Time Temp Pulse Resp B/P (MAP) Pulse Ox O2 Delivery O2 Flow Rate FiO2 08/21/17 14:46 86 08/21/17 14:41 90 22 93 Room Air 08/21/17 14:31 123/102 08/21/17 14:11 81 24 97 Room Air 08/21/17 14:01 118/71 08/21/17 13:41 85 14 97 Room Air 08/21/17 13:36 81 26 94 Room Air 08/21/17 13:31 110/81 08/21/17 13:06 86 20 97 Room Air 08/21/17 13:01 107/66 08/21/17 12:36 84 24 93 Room Air 08/21/17 12:31 110/63 08/21/17 12:06 98 20 94 Room Air 08/21/17 12:01 87 26 101/69 91 Room Air 08/21/17 11:31 86 16 96/68 95 Room Air 08/21/17 11:15 87 08/21/17 11:10 97/64 08/21/17 11:05 93 Room Air 08/21/17 11:05 36.8 83 15 97/64 93 Room Air Physical Exam GENERAL: Patient is in no acute distress. HEENT: No acute trauma, normocephalic atraumatic, mucous membranes moist, no nasal congestion, no scleral icterus. Posterior pharyngeal erythema. No exudate. NECK: No stridor, no adenopathy, no meningismus, trachea is midline. LUNGS: Clear to auscultation bilaterally, no wheeze, no rhonchi, breath sounds equal. HEART: Without murmurs gallops or rubs, regular rate and rhythm. ABDOMEN: Soft, bowel sounds positive, no hernias, no peritonitis. Tender in the epigastrium. EXTREMITIES: No cyanosis or edema, full range of motion of all the joints without pain or difficulty, no signs for acute trauma. NEUROLOGIC: Oriented x 3, no acute motor or sensory deficits, no focal weakness. SKIN: No rash, no jaundice, no diaphoresis. Medical Decision & Procedures ER Provider Diagnostic Interpretation: Radiology results as stated below per my review and radiologist interpretation: CHEST ONE VIEW PORTABLE FINDINGS: A left subclavian [id number] is in place. There is no pneumothorax or pleural effusion. A 5.2 cm right lower lobe mass is again noted. There is no pneumothorax or pleural effusion. There is no evidence for pulmonary edema. Mild mediastinal widening is unchanged. IMPRESSION: Redemonstration of a 5.2 cm right lower lobe mass and mild mediastinal widening. Electronically signed by: Josiah Marquez M.D. 08/21/2017 11:49 AM Laboratory Results 08/21/17 11:55 Red Blood Count 4.73, Mean Corpuscular Volume 88.2, Mean Corpuscular Hemoglobin 30.4, Mean Corpuscular Hemoglobin Concent 34.5, Mean Platelet Volume 9.1, Neutrophils (%) (Auto) 82.0, Lymphocytes (%) (Auto) 10.5, Monocytes (%) (Auto) 4.6, Eosinophils (%) (Auto) 2.5, Basophils (%) (Auto) 0.2, Neutrophils # (Auto) 6.64, Lymphocytes # (Auto) 0.85, Monocytes # (Auto) 0.37, Eosinophils # (Auto) 0.20, Basophils # (Auto) 0.02 08/21/17 11:55 Test 08/21/17 11:55 White Blood Count 8.10 K/uL (4.8-10.8) Red Blood Count 4.73 M/uL (4.2-5.4) Hemoglobin 14.4 g/dL (12.0-16.0) Hematocrit 41.7 % (37-47) Mean Corpuscular Volume 88.2 fL (80-100) Mean Corpuscular Hemoglobin 30.4 pg (25-34) Mean Corpuscular Hemoglobin Concent 34.5 g/dl (32-36) Platelet Count 242 K/uL (130-400) Mean Platelet Volume 9.1 fL (7.4-10.4) Neutrophils (%) (Auto) 82.0 % Lymphocytes (%) (Auto) 10.5 % Monocytes (%) (Auto) 4.6 % Eosinophils (%) (Auto) 2.5 % Basophils (%) (Auto) 0.2 % Neutrophils # (Auto) 6.64 K/uL (1.4-6.5) Lymphocytes # (Auto) 0.85 K/uL (1.2-3.4) Monocytes # (Auto) 0.37 K/uL (0.11-0.59) Eosinophils # (Auto) 0.20 K/uL (0-0.5) Basophils # (Auto) 0.02 K/uL (0-0.2) RDW Standard Deviation 46.0 fL (36.4-46.3) RDW Coefficient of Variation 14.2 % (11.5-14.5) Immature Granulocyte % (Auto) 0.2 % Immature Granulocyte # (Auto) 0.02 K/uL (0.00-0.02) Prothrombin Time 9.8 SECONDS (9.0-12.0) Prothromb Time International Ratio 0.9 (0.9-1.1) Activated Partial Thromboplast Time 26.6 SECONDS (21.0-31.0) Partial Thromboplastin Ratio 1.0 Anion Gap 5.0 mmol/L (3-11) Estimated GFR () 79.4 Estimated GFR (Non- 68.5 BUN/Creatinine Ratio 22.9 (10-20) Calcium Level 8.4 mg/dl (8.5-10.1) Magnesium Level 2.3 mg/dl (1.8-2.4) Total Bilirubin 0.4 mg/dl (0.2-1) Aspartate Amino Transf (AST/SGOT) 10 U/L (15-37) Alanine Aminotransferase (ALT/SGPT) 21 U/L (12-78) Alkaline Phosphatase 147 U/L (45-117) Troponin I < 0.015 ng/ml (0-0.045) Total Protein 7.2 gm/dl (6.4-8.2) Albumin 3.1 gm/dl (3.4-5.0) Globulin 4.1 gm/dl (2.5-4.0) Albumin/Globulin Ratio 0.8 (0.9-2) Thyroid Stimulating Hormone (TSH) 9.350 uIu/ml (0.300-4.500) Free Thyroxine 0.76 ng/dl (0.80-1.60) Laboratory results reviewed by me. Medications Administered Medications (Trade) Dose Ordered Sig/Tami Route Start Time Stop Time Status Last Admin Dose Admin Sodium Chloride 2,000 ml @ 999 mls/hr Q2H1M STAT IV 08/21/17 11:29 08/21/17 13:29 DC 08/21/17 12:03 999 MLS/HR Lidocaine HCl (Viscous Lidocaine 2% Soln) 10 ml NOW STAT PO 08/21/17 11:31 08/21/17 11:32 DC 08/21/17 12:03 10 ML Al Hydroxide/Mg Hydroxide (Maalox Susp) 30 ml NOW STAT PO 08/21/17 11:31 08/21/17 11:32 DC 08/21/17 12:03 30 ML ECG Per My Interpretation Indication: weakness Rate (beats per minute): 90 Rhythm: normal sinus Findings: T-wave inversion (Anterior), other (Diffuse non-specific ST changes. No PVCs. ) Comparison ECG Date: July 27, 2012 Change: Anterior T-wave changes are new. ED Course 1125: The patient was evaluated in room C5. A complete history and physical exam was performed. 1129: Ordered Sodium Chloride 2000 ml @ 999 mls/hr IV. 1131: Ordered Maalox Susp 30 mL PO, Viscous Lidocaine 2% Soln 10 mL PO. 1405: Reevaluated the patient. Discussed results and discharge instructions: she verbalized understanding and agreement. The patient is ready for discharge. Medical Decision The patient is a 66 year old female who presents to the ED with complaints of throat pain. Differential diagnoses considered include radiation esophagitis, reflux esophagitis, cardiac ischemia, anemia, electrolyte imbalance, dehydration and infection. There is no leukocytosis or concerning anemia. No significant electrolyte abnormality, kidney failure or hepatitis. There is no pancreatitis. EKG shows a normal sinus rhythm with some subtle T-wave inversions in the anterior leads, no evidence for acute CO. Cardiac enzyme testing 1 is not consistent with acute cardiac injury. Chest x-ray does not show pneumonia, free air or pneumothorax. The right lung mass was again seen on the chest film. Patient presents with pain with swallowing. Things have progressed to the point where she cannot eat or drink. She has a hard time speaking. She was given IV saline for hydration, this made her feel generally improved. She was given a GI cocktail but this did not really help her swallowing issue. Patient presents mildly hypotensive, dehydrated. She cannot eat or drink. Hospitalization is required. I suspect she has radiation esophagitis. I did speak with case management and the on-call hospitalist. The patient is aware of all her findings. Medication Reconcilliation Current Medication List: was personally reviewed by me Blood Pressure Screening Patient's blood pressure: Low blood pressure Blood pressure disposition: Did not require urgent referral Consults Time Called: 1400 Consulting Physician: Dr. Frank Hawkins Hospitalist Returned Call: [phone] Discussed the patient's case. The patient will be evaluated for further management. Impression Primary Impression: Dehydration Additional Impressions: Inability to swallow Lung cancer S/P radiation therapy Scribe Attestation The scribe's documentation has been prepared under my direction and personally reviewed by me in its entirety. I confirm that the note above accurately reflects all work, treatment, procedures, and medical decision making performed by me. Departure Information Dispostion Being Evaluated By Hospitalist Referrals Susy Bates D.O. (PCP) Patient Instructions My [facility] Health Problem Qualifiers
--- NOTE | 2017-08-21 15:39 | DIAGNOSTIC IMAGING REPORT ---
(BARIUM SWALLOW) ESOPHAGUS CLINICAL HISTORY: feels food getting stuck in lower esophagus, rule out stricturedysphagia COMPARISON STUDY: None FLUOROSCOPY TIME: 1.1 minutes. FINDINGS: Patient initiates the swallowing function well. Esophageal motility is diminished. There is mild esophageal irritability and/or spasm. Gastroesophageal junction is unremarkable. IMPRESSION: 1. Generalized decrease in esophageal motility. 2. Mild esophageal spasm and/or irritability distally. 3. No evidence for an obstructing lesion The above report was generated using voice recognition software. It may contain grammatical, syntax or spelling errors. Electronically signed by: Vladislav Espana M.D. 08/21/2017 3:38 PM Dictated Date/Time: 08/21/2017 3:37 PM
[2017-08-21 16:00] VITALS: BP 124/79; PULSE 95; TEMP 36.8; O2SAT 95
[2017-08-21 16:38] VITALS: BP 124/79; PULSE 95; TEMP 36.8; O2SAT 95
[2017-08-21] MEDS ORDERED: PANTOprazole INJ 40 MG in SYRINGE 0 ML IV ONE (17:30)
[2017-08-21] MEDS: D5NSS + 20MEQ KCL 1,000 ML IV SCH (17:42)
[2017-08-21] MEDS: NYSTATIN SUSP 500,000 U/5 ML UDC PO SCH ×2 (17:46→20:58)
--- NOTE | 2017-08-21 17:57 | Gastrointestinal Consultation ---
Gastrointestinal Consultation Date of Consultation: Aug 21, 2017 Attending Physician: Vanessa Marie Consulting Physician: Nicola Dickson Reason for Consultation: Possible radiation esophagitis w stricture History of Present Illness Patient is a 66 year old female who presented to ED w c/o difficulty and painful swallowing since last Monday. She has hx of stage III lung ca currently undergoing chemo and XRT last dose 08/17. She noticed that since Monday, she's having trouble even swallowing some liquids, felt at times liquids may temporarily get stuck on mid esophagus, and also felt it's painful to swallow. Has associated voice hoarseness as well. Denies any associated nausea, vomiting , abd pain, changes in BM habits. She hasn't been able to tolerate much PO intake and has generalized weakness thus decides to come to ED for evaluation. CXR showed RLL 5cm mass. Esophageal xray showed mild spasm and irritability, decreased motility, no obstructing mass noted. She did have an EGD in 2016 for dysphagia w/o obvious etiology but dilation done to 18mm. She does have evidence of reflux, no Hpylori Past Medical/Surgical History Medical Problems: (1) Contusion of wrist, right Status: Acute (2) Dehydration Status: Acute (3) Inability to swallow Status: Acute (4) Lung cancer Status: Chronic Social History Problems: (1) S/P radiation therapy Status: Acute Past Medical History: Anxiety Claudication RLS Past Surgical History: Thyroidectomy, hysterectomy Family History FH: CAD (coronary artery disease) FATHER FH: leukemia MOTHER Social History Smoking Status: Current Every Day Smoker Drug Use: none Marital Status: Occupation Status: employed Allergies Coded Allergies: No Known Allergies (Unverified , 08/21/17) Current Medications Home Meds and Scripts Medications Dose Route/Sig Max Daily Dose Days Date Category Dose Instructions Roxicodone Ir (Oxycodone HCl) 5 Mg Tab 1 Tab PO Q6H PRN 30 08/21/17 Reported Decadron (Dexamethasone) Unknown Strength Tab 1 Dose PO UD 08/21/17 Reported TAKES THE NIGHT BEFORE CHEMO THERAPY Compazine (Prochlorperazine Maleate) 10 Mg Tab 10 Mg PO Q6 PRN 7 08/15/17 Reported Zofran (Ondansetron HCl) 8 Mg Tab 8 Mg PO Q8 PRN 08/15/17 Reported Vitamin C (Ascorbic Acid) 500 Mg Cap 500 Mg PO QAM 4/6/18 Reported Levothyroxine Sodium 137 Mcg Tab 137 Mcg PO QAM 30 07/21/17 Reported Lipitor (Atorvastatin Calcium) 10 Mg Tab 20 Mg PO QAM 04/28/13 Reported Aspir-81 (Aspirin) 81 Mg Tab 81 Mg PO QAM 07/27/12 Reported Prozac (Fluoxetine HCl) 40 Mg Cap 40 Mg PO QAM 07/27/12 Reported Plavix (Clopidogrel Bisulfate) 75 Mg Tab 75 Mg PO QAM 05/15/10 Reported Review of Systems Constitutional: + weakness, No fever, No chills ENT: + see HPI, + trouble swallowing, + pain on swallowing Respiratory: No cough Cardiac: No chest pain Abdomen: No pain, No nausea, No vomiting Physical Exam Date Time Temp Pulse Resp B/P (MAP) Pulse Ox O2 Delivery O2 Flow Rate FiO2 08/21/17 16:38 36.8 95 18 124/79 95 Room Air 08/21/17 16:00 36.8 95 18 124/79 (94) 95 Room Air 08/21/17 15:55 80 16 114/64 94 08/21/17 14:46 86 08/21/17 14:41 90 22 93 Room Air 08/21/17 14:31 123/102 08/21/17 14:11 81 24 97 Room Air 08/21/17 14:01 118/71 08/21/17 13:41 85 14 97 Room Air 08/21/17 13:36 81 26 94 Room Air 08/21/17 13:31 110/81 08/21/17 13:06 86 20 97 Room Air 08/21/17 13:01 107/66 08/21/17 12:36 84 24 93 Room Air 08/21/17 12:31 110/63 08/21/17 12:06 98 20 94 Room Air 08/21/17 12:01 87 26 101/69 91 Room Air 08/21/17 11:31 86 16 96/68 95 Room Air 08/21/17 11:15 87 08/21/17 11:10 97/64 08/21/17 11:05 93 Room Air 08/21/17 11:05 36.8 83 15 97/64 93 Room Air General Appearance: WD/WN, no apparent distress Eyes: normal inspection, PERRL, EOMI ENT: + pertinent finding (white patches suspicious for zhou noted on oral mucosa) Neck: supple, no JVD, trachea midline Respiratory/Chest: normal breath sounds, no respiratory distress, no accessory muscle use Cardiovascular: regular rate, rhythm, no gallop, no murmur Abdomen: normal bowel sounds, non tender, soft Extremities: normal inspection, no pedal edema, no calf tenderness Neurologic/Psych: alert, normal mood/affect, oriented x 3 Skin: normal color, no jaundice, no rash Laboratory Results Last 24 Hours Test 08/21/17 11:55 White Blood Count 8.10 K/uL Red Blood Count 4.73 M/uL Hemoglobin 14.4 g/dL Hematocrit 41.7 % Mean Corpuscular Volume 88.2 fL Mean Corpuscular Hemoglobin 30.4 pg Mean Corpuscular Hemoglobin Concent 34.5 g/dl Platelet Count 242 K/uL Mean Platelet Volume 9.1 fL Neutrophils (%) (Auto) 82.0 % Lymphocytes (%) (Auto) 10.5 % Monocytes (%) (Auto) 4.6 % Eosinophils (%) (Auto) 2.5 % Basophils (%) (Auto) 0.2 % Neutrophils # (Auto) 6.64 K/uL Lymphocytes # (Auto) 0.85 K/uL Monocytes # (Auto) 0.37 K/uL Eosinophils # (Auto) 0.20 K/uL Basophils # (Auto) 0.02 K/uL RDW Standard Deviation 46.0 fL RDW Coefficient of Variation 14.2 % Immature Granulocyte % (Auto) 0.2 % Immature Granulocyte # (Auto) 0.02 K/uL Prothrombin Time 9.8 SECONDS Prothromb Time International Ratio 0.9 Activated Partial Thromboplast Time 26.6 SECONDS Partial Thromboplastin Ratio 1.0 Sodium Level 134 mmol/L Potassium Level 4.4 mmol/L Chloride Level 101 mmol/L Carbon Dioxide Level 28 mmol/L Anion Gap 5.0 mmol/L Blood Urea Nitrogen 20 mg/dl Creatinine 0.89 mg/dl Estimated GFR () 79.4 Estimated GFR (Non- 68.5 BUN/Creatinine Ratio 22.9 Random Glucose 97 mg/dl Calcium Level 8.4 mg/dl Magnesium Level 2.3 mg/dl Total Bilirubin 0.4 mg/dl Aspartate Amino Transf (AST/SGOT) 10 U/L Alanine Aminotransferase (ALT/SGPT) 21 U/L Alkaline Phosphatase 147 U/L Troponin I < 0.015 ng/ml Total Protein 7.2 gm/dl Albumin 3.1 gm/dl Globulin 4.1 gm/dl Albumin/Globulin Ratio 0.8 Thyroid Stimulating Hormone (TSH) 9.350 uIu/ml Free Thyroxine 0.76 ng/dl Impression Patient is a 66 year old female who presented w dysphagia, odynophagia, voice hoarseness and poor PO intake since last Monday. Hx of stage III lung ca currently on chemo and radiation. Hx of dysphagia in 2016 s/p dilation. Esophageal xray showed decreased esophageal motility and some spasm and possibly irritability. She does appear to have oral candidiasis on exam. Plan - CL diet - Agree w [employer] - Add Nystatin 5mL QID swish and swallow - Protonix 40mg BID - NPO for possible EGD eval tomorrow. Late entry from yesterday. I interviewed and examined pt, reviewed chart and labs. Pt receiving XRT/chemo for lung ca now with dysphagia/odynophagia. Thrush on oral exam. No leukopenia on CBC. Suspect XRT esophagitis, candidal esophagitis.
[2017-08-21] MEDS ORDERED: MoRPHine SULFATE 4 MG/ML 1 ML CARP\\VIAL IV PRN (18:45)
[2017-08-21 20:00] VITALS: O2SAT 95
[2017-08-21] MEDS: PANTOprazole INJ 40 MG in SYRINGE 0 ML IV SCH (20:58)
[2017-08-22] VITALS (11 sets, daily range): BP systolic 97–108; BP diastolic 63–73; PULSE 66–94; TEMP 36.5–36.9; O2SAT 94–95; Ht 162.6 cm; Wt 68.9 kg
[2017-08-22] MEDS: ACETAMINOPHEN/HYDROCODONE ELIX 15 ML/CUP UDP PO PRN ×2 (00:14→08:27)
[2017-08-22] MEDS: D5NSS + 20MEQ KCL 1,000 ML IV SCH (01:56)
[2017-08-22 06:44] LABS: BLOOD UREA NITROGEN 10 mg/dl (7-18); CALCIUM 7.5 mg/dl (8.5-10.1); CARBON DIOXIDE 28 mmol/L (21-32); CREATININE 0.73 mg/dl (0.60-1.20); GLUCOSE 117 mg/dl (70-99); PHOSPHORUS 2.6 mg/dl (2.5-4.9); POTASSIUM 4.4 mmol/L (3.5-5.1); SODIUM 138 mmol/L (136-145)
[2017-08-22] MEDS: NYSTATIN SUSP 500,000 U/5 ML UDC PO SCH ×4 (08:15→20:39)
[2017-08-22] MEDS: PANTOprazole INJ 40 MG in SYRINGE 0 ML IV SCH ×2 (08:25→20:41)
[2017-08-22] MEDS: ASPIRIN 81 MG ECTAB PO SCH ×2 (08:33→13:59)
[2017-08-22] MEDS: ENOXAPARIN 40 MG/0.4 ML SYR SQ SCH (08:33)
[2017-08-22] MEDS: ATORVASTATIN 20 MG TAB PO SCH ×2 (08:33→13:59)
[2017-08-22] MEDS: CLOPIDOGREL BISULFATE 75 MG TAB PO SCH ×2 (08:33→13:59)
[2017-08-22] MEDS: FLUOXETINE HCL 20 MG CAP PO SCH ×2 (08:33→13:59)
[2017-08-22] MEDS ORDERED: LEVOTHYROXINE SODIUM IV SCH (09:00)
[2017-08-22] MEDS ORDERED: PANTOprazole INJ 40 MG in SYRINGE 0 ML IV SCH (11:00)
[2017-08-22] MEDS ORDERED: FENTANYL CITRATE INJ 50 MCG/1 ML 2 ML VIAL ONE (12:33)
--- NOTE | 2017-08-22 12:53 | GI REPORT ---
Procedure Date: 08/22/2017 12:35 PM Procedure: Upper GI endoscopy Indications: Dysphagia Medicines: See the Anesthesia note for documentation of the administered medications Complications: No immediate complications. Estimated Blood Loss: Estimated blood loss: none. Procedure: Pre-Anesthesia Assessment: - ASA Grade Assessment: III - A patient with severe systemic disease. After obtaining informed consent, the endoscope was passed under direct vision. Throughout the procedure, the patient's blood pressure, pulse, and oxygen saturations were monitored continuously. The scope was introduced through the mouth, and advanced to the second part of duodenum. The upper GI endoscopy was accomplished without difficulty. The patient tolerated the procedure well. Findings: Mild erythema in the proximal and mid esophagus, more severe proximally. No ulceration or erosions were seen. No candidiasis was seen. There was a mild ring at the GE juction at 35 cm. This is not narrow enough to cause liquid dysphagia, and was not thought to be the cause of the pt's symptoms; this was not dilated, due to ongoing XRT therapy. The examined stomach and duodenum was normal. Impression: Mild radiation esophagitis. Mild ring. Recommendation: - Discharge patient to floor. Continue Nystatin for oral thrush. Continue supportive care. Diet as tolerated. Will sign off - please reconsult as needed. Nicola Dickson M.D. Nicola Dickson MD 08/22/2017 12:52:39 PM This report has been signed electronically. Note Initiated On: 08/22/2017 12:35 PM I attest to the content of the Intraoperative Record and orders documented therein, exceptions below
[2017-08-22] MEDS ORDERED: PHENYLEPHRINE HCL INJ 10 MG/ML VIAL ONE (12:57)
[2017-08-22] MEDS ORDERED: PROPOFOL IV EMULSION 10 MG/ML 20 ML VIAL IV ONE (12:57)
[2017-08-22] MEDS ORDERED: LIDOCAINE HCL 2% 2 ML VIAL (20MG/ML) ONE (12:57)
--- NOTE | 2017-08-22 13:36 | Anesthesiology Progress Note ---
Anesthesia Post Op Note Date & Time Aug 22, 2017 at 13:35 Vital Signs Pain Intensity: 5.0 Vital Signs Past 12 Hours Date Time Temp Pulse Resp B/P (MAP) Pulse Ox O2 Delivery O2 Flow Rate FiO2 08/22/17 13:10 110 20 111/58 (75) 95 Room Air 08/22/17 12:53 110 16 156/126 (136) 100 Room Air 08/22/17 12:04 36.7 68 18 91/61 (71) 94 Room Air 08/22/17 12:00 94 Room Air 08/22/17 11:50 36.7 66 20 104/69 (81) 95 Room Air 08/22/17 08:00 94 Room Air 08/22/17 07:36 36.5 78 108/73 (85) 94 Room Air 08/22/17 04:00 Room Air 08/22/17 04:00 36.9 74 16 101/65 (77) 95 Room Air Notes Mental Status: alert / awake / arousable, participated in evaluation Pt Amnestic to Procedure: Yes Nausea / Vomiting: adequately controlled Pain: adequately controlled Airway Patency, RR, SpO2: stable & adequate BP & HR: stable & adequate Hydration State: stable & adequate Anesthetic Complications: no major complications apparent
--- NOTE | 2017-08-22 14:59 | Radiation Oncology Progress Nt ---
Radiation Oncology Progress Nt Date of Service Date of Service: Aug 22, 2017. Reason For Admission Dehydration/Poor Oral Intake (Mild esophagitis) Requesting Physician Dr. Spring Subjective Pt evaluation today including: chart review, lab review, review of studies, conversation w/ it consultant, review of inpatient medication list Upper EGD by Dr. Dickson - 08/22/17 - Findings: Mild erythema in the proximal and mid esophagus, more severe proximally. No ulceration or erosions were seen. No candidiasis was seen. There was a mild ring at the GE juction at 35 cm. This is not narrow enough to cause liquid dysphagia, and was not thought to be the cause of the pt's symptoms; this was not dilated, due to ongoing XRT therapy.The examined stomach and duodenum was normal. Impression: Mild radiation esophagitis. Mild ring. Radiation Therapy Has patient started Radiation: Yes Number of Treatments Received: 9 Number of Treatments Planned: 30 Current Chemotherapy: Yes Type of Chemotherapy: Carboplatin / Taxol Objective Vital Signs Date Time Temp Pulse Resp B/P (MAP) Pulse Ox O2 Delivery O2 Flow Rate FiO2 08/22/17 13:55 36.7 77 16 97/63 (74) 94 Room Air 08/22/17 13:35 78 20 100/59 (73) 92 Room Air 08/22/17 13:25 36.7 110 20 98/85 (89) 95 Room Air 08/22/17 13:10 110 20 111/58 (75) 95 Room Air 08/22/17 12:53 110 16 156/126 (136) 100 Room Air 08/22/17 12:04 36.7 68 18 91/61 (71) 94 Room Air 08/22/17 12:00 94 Room Air 08/22/17 11:50 36.7 66 20 104/69 (81) 95 Room Air 08/22/17 08:00 94 Room Air 08/22/17 07:36 36.5 78 108/73 (85) 94 Room Air 08/22/17 04:00 Room Air 08/22/17 04:00 36.9 74 16 101/65 (77) 95 Room Air 08/22/17 00:35 36.5 83 20 99/67 (78) 94 Room Air 08/22/17 00:00 Room Air 08/21/17 20:00 95 Room Air 08/21/17 16:38 36.8 95 18 124/79 95 Room Air 08/21/17 16:00 36.8 95 18 124/79 (94) 95 Room Air 08/21/17 15:55 80 16 114/64 94 Radiological Studies CHEST ONE VIEW PORTABLE - 08/21/17 CLINICAL HISTORY: EVALUATE ALTERED MENTAL STATUS/WEAKNESS COMPARISON STUDY: PET/CT July 12, 2017 and chest radiograph August 07, 2017. FINDINGS: A left subclavian [id number] is in place. There is no pneumothorax or pleural effusion. A 5.2 cm right lower lobe mass is again noted. There is no pneumothorax or pleural effusion. There is no evidence for pulmonary edema. Mild mediastinal widening is unchanged. IMPRESSION: Redemonstration of a 5.2 cm right lower lobe mass and mild mediastinal widening. (BARIUM SWALLOW) ESOPHAGUS - 08/21/17 CLINICAL HISTORY: feels food getting stuck in lower esophagus, rule out stricturedysphagia COMPARISON STUDY: None FLUOROSCOPY TIME: 1.1 minutes. FINDINGS: Patient initiates the swallowing function well. Esophageal motility is diminished. There is mild esophageal irritability and/or spasm. Gastroesophageal junction is unremarkable. IMPRESSION: 1. Generalized decrease in esophageal motility. 2. Mild esophageal spasm and/or irritability distally. 3. No evidence for an obstructing lesion Laboratory Results Last 24 Hours Test 08/21/17 17:54 08/21/17 20:00 08/22/17 00:21 08/22/17 05:57 Troponin I < 0.015 ng/ml < 0.015 ng/ml Urine Color YELLOW Urine Appearance CLEAR Urine pH 7.5 Urine Specific [place] 1.021 Urine Protein NEG Urine Glucose (UA) NEG Urine Ketones NEG Urine Occult Blood NEG Urine Nitrite NEG Urine Bilirubin NEG Urine Urobilinogen NEG Urine Leukocyte Esterase NEG Sodium Level 138 mmol/L Potassium Level 4.4 mmol/L Chloride Level 108 mmol/L Carbon Dioxide Level 28 mmol/L Anion Gap 2.0 mmol/L Blood Urea Nitrogen 10 mg/dl Creatinine 0.73 mg/dl Estimated GFR () 100.9 Estimated GFR (Non- 87.0 BUN/Creatinine Ratio 13.4 Random Glucose 117 mg/dl Calcium Level 7.5 mg/dl Phosphorus Level 2.6 mg/dl Magnesium Level 2.2 mg/dl Assessment and Plan We have discussed the patients care with the primary hospital service/ consulting services. The patients reason for admission is related to side effects from chemotherapy and radiation therapy (esophagitis). The primary hospital service has recommended the patient continue with radiation therapy while in the inpatient setting. The patient will be evaluated in our department and will continue with radiation therapy during this hospital course. The patient will be called down tomorrow for radiation therapy. Please call us with any further questions or concerns or if the patients condition changes during her hospital admission.
--- NOTE | 2017-08-22 16:52 | Progress Note ---
Subjective Date of Service: Aug 22, 2017. Subjective Pt evaluation today including: conversation w/ patient, physical exam, lab review, review of studies LATE ENTRY FOR 08/23: Saw/examined the patient in room 277 Has some epigastric tenderness +weakness persists as well Problem List Medical Problems: (1) Contusion of wrist, right Status: Acute (2) Dehydration Status: Acute (3) Inability to swallow Status: Acute (4) Lung cancer Status: Chronic Social History Problems: (1) S/P radiation therapy Status: Acute Review of Systems Constitutional: No fever, No chills ENT: + trouble swallowing Respiratory: No cough, No sputum, No wheezing, No shortness of breath, No dyspnea on exertion, No dyspnea at rest, No hemoptysis Cardiac: No chest pain, No edema, No palpitations Abdomen: + see HPI, + pain, No nausea, No vomiting, No diarrhea, No constipation, No GI bleeding Medications Current Inpatient Medications Medications (Trade) Dose Ordered Sig/Tami Route Start Time Stop Time Status Last Admin Dose Admin Ondansetron HCl (Zofran Inj) 4 mg Q6H PRN IV 08/21/17 14:45 09/20/17 14:44 Acetaminophen/ Hydrocodone Bitart (Lortab Elixir) 15 ml Q6H PRN PO 08/21/17 14:45 09/04/17 14:44 08/23/17 06:32 15 ML Lidocaine HCl (Viscous Lidocaine 2% Soln) 20 ml Q6H PRN MT 08/21/17 14:45 09/20/17 14:44 Acetaminophen 650 mg/Empty Bag 65 ml @ 260 mls/hr Q6H PRN IV 08/21/17 15:00 09/20/17 14:59 08/21/17 17:59 260 MLS/HR Aspirin (Ecotrin Tab) 81 mg QAM PO 08/22/17 09:00 09/21/17 08:59 08/22/17 13:59 81 MG Atorvastatin Calcium (Lipitor Tab) 20 mg QAM PO 08/22/17 09:00 09/21/17 08:59 08/22/17 13:59 20 MG Clopidogrel Bisulfate (plAVix TAB) 75 mg QAM PO 08/22/17 09:00 09/21/17 08:59 08/22/17 13:59 75 MG Fluoxetine HCl (Prozac Cap) 40 mg QAM PO 08/22/17 09:00 09/21/17 08:59 08/22/17 13:59 40 MG Enoxaparin Sodium (Lovenox Inj) 40 mg QAM SQ 08/22/17 09:00 09/21/17 08:59 Nystatin (Mycostatin Susp) 5 ml QID PO 08/21/17 17:00 08/31/17 16:59 08/22/17 20:39 5 ML Morphine Sulfate (MoRPHine SULFATE INJ) 4 mg Q4H PRN IV 08/21/17 18:45 09/04/17 18:44 Heparin Sodium (Porcine) (Heparin 100 Unit/ml 5ml Flush) 5 ml PRN PRN IV 08/22/17 10:45 09/21/17 10:44 08/23/17 06:49 5 ML Levothyroxine Sodium (Synthroid Tab) 150 mcg DAILYBB PO 08/23/17 06:30 09/22/17 06:29 Pantoprazole Sodium (Protonix Tab) 40 mg BID PO 08/23/17 09:00 09/22/17 08:59 Objective Vital Signs Date Time Temp Pulse Resp B/P (MAP) Pulse Ox O2 Delivery O2 Flow Rate FiO2 08/22/17 08:00 94 Room Air 08/22/17 07:36 36.5 78 108/73 (85) 94 Room Air 08/22/17 04:00 Room Air 08/22/17 04:00 36.9 74 16 101/65 (77) 95 Room Air 08/22/17 00:35 36.5 83 20 99/67 (78) 94 Room Air 08/22/17 00:00 Room Air 08/21/17 20:00 95 Room Air 08/21/17 16:38 36.8 95 18 124/79 95 Room Air 08/21/17 16:00 36.8 95 18 124/79 (94) 95 Room Air 08/21/17 15:55 80 16 114/64 94 08/21/17 14:46 86 08/21/17 14:41 90 22 93 Room Air 08/21/17 14:31 123/102 08/21/17 14:11 81 24 97 Room Air 08/21/17 14:01 118/71 08/21/17 13:41 85 14 97 Room Air 08/21/17 13:36 81 26 94 Room Air 08/21/17 13:31 110/81 08/21/17 13:06 86 20 97 Room Air 08/21/17 13:01 107/66 08/21/17 12:36 84 24 93 Room Air 08/21/17 12:31 110/63 08/21/17 12:06 98 20 94 Room Air 08/21/17 12:01 87 26 101/69 91 Room Air 08/21/17 11:31 86 16 96/68 95 Room Air 08/21/17 11:15 87 08/21/17 11:10 97/64 Physical Exam General Appearance: no apparent distress Respiratory/Chest: no respiratory distress, no accessory muscle use Cardiovascular: regular rate, rhythm, no edema, no murmur Extremities: normal inspection, no pedal edema Neurologic/Psychiatric: no motor/sensory deficits, alert, normal mood/affect Laboratory Results Last 24 Hours Test 08/21/17 11:55 08/21/17 17:54 08/21/17 20:00 08/22/17 00:21 White Blood Count 8.10 K/uL Red Blood Count 4.73 M/uL Hemoglobin 14.4 g/dL Hematocrit 41.7 % Mean Corpuscular Volume 88.2 fL Mean Corpuscular Hemoglobin 30.4 pg Mean Corpuscular Hemoglobin Concent 34.5 g/dl Platelet Count 242 K/uL Mean Platelet Volume 9.1 fL Neutrophils (%) (Auto) 82.0 % Lymphocytes (%) (Auto) 10.5 % Monocytes (%) (Auto) 4.6 % Eosinophils (%) (Auto) 2.5 % Basophils (%) (Auto) 0.2 % Neutrophils # (Auto) 6.64 K/uL Lymphocytes # (Auto) 0.85 K/uL Monocytes # (Auto) 0.37 K/uL Eosinophils # (Auto) 0.20 K/uL Basophils # (Auto) 0.02 K/uL RDW Standard Deviation 46.0 fL RDW Coefficient of Variation 14.2 % Immature Granulocyte % (Auto) 0.2 % Immature Granulocyte # (Auto) 0.02 K/uL Prothrombin Time 9.8 SECONDS Prothromb Time International Ratio 0.9 Activated Partial Thromboplast Time 26.6 SECONDS Partial Thromboplastin Ratio 1.0 Sodium Level 134 mmol/L Potassium Level 4.4 mmol/L Chloride Level 101 mmol/L Carbon Dioxide Level 28 mmol/L Anion Gap 5.0 mmol/L Blood Urea Nitrogen 20 mg/dl Creatinine 0.89 mg/dl Estimated GFR () 79.4 Estimated GFR (Non- 68.5 BUN/Creatinine Ratio 22.9 Random Glucose 97 mg/dl Calcium Level 8.4 mg/dl Magnesium Level 2.3 mg/dl Total Bilirubin 0.4 mg/dl Aspartate Amino Transf (AST/SGOT) 10 U/L Alanine Aminotransferase (ALT/SGPT) 21 U/L Alkaline Phosphatase 147 U/L Troponin I < 0.015 ng/ml < 0.015 ng/ml < 0.015 ng/ml Total Protein 7.2 gm/dl Albumin 3.1 gm/dl Globulin 4.1 gm/dl Albumin/Globulin Ratio 0.8 Thyroid Stimulating Hormone (TSH) 9.350 uIu/ml Free Thyroxine 0.76 ng/dl Urine Color YELLOW Urine Appearance CLEAR Urine pH 7.5 Urine Specific [place] 1.021 Urine Protein NEG Urine Glucose (UA) NEG Urine Ketones NEG Urine Occult Blood NEG Urine Nitrite NEG Urine Bilirubin NEG Urine Urobilinogen NEG Urine Leukocyte Esterase NEG Test 08/22/17 05:57 Sodium Level 138 mmol/L Potassium Level 4.4 mmol/L Chloride Level 108 mmol/L Carbon Dioxide Level 28 mmol/L Anion Gap 2.0 mmol/L Blood Urea Nitrogen 10 mg/dl Creatinine 0.73 mg/dl Estimated GFR () 100.9 Estimated GFR (Non- 87.0 BUN/Creatinine Ratio 13.4 Random Glucose 117 mg/dl Calcium Level 7.5 mg/dl Phosphorus Level 2.6 mg/dl Magnesium Level 2.2 mg/dl Assessment and Plan This is a 66 year old female with a past medical history of malignant neoplasm of the R lower lobe of the lung with ongoing chemo and radiation, peripheral arterial disease, hypothyroidism - presents with dysphagia, odynophagia Dysphagia/Odynophagia Mild Radiation Esophagitis - appreciate GI input - EGD performed, no zhou, no erosions/ulcerations noted - mild ring noted, but not enough to cause symptoms - possibly related to mild form of radiation esophagitis - will advance diet and monitor - will continue nystatin for oral thrush - will continue Protonix BID for now Right LL Lung Neoplasm - with ongoing radiation/chemotherapy - appreciate radiation/oncology input; radiation tx in AM (08/23) - outpatient oncology follow-up Peripheral Artery Disease - continue aspirin, Plavix, statin Hypothyroidism - currently on IV Synthroid, will change to PO in AM (08/23) DVT ppx - Lovenox FULL CODE
[2017-08-22] MEDS ORDERED: LORAZEPAM 0.5 MG TAB PO ONE (22:00)
[2017-08-23] VITALS (10 sets, daily range): BP systolic 83–104; BP diastolic 53–70; PULSE 64–85; TEMP 36.5–37.1; O2SAT 93–95
[2017-08-23 06:14] LABS: HEMATOCRIT 34.4 % (37-47); HEMOGLOBIN 11.7 g/dL (12.0-16.0); MEAN CELL VOLUME 89.4 fL (80-100); MEAN CORPUSCULAR HEMOGLOBIN 30.4 pg (25-34); PLATELET COUNT 215 K/uL (130-400); RED CELL DISTRIBUTION WIDTH CV 14.3 % (11.5-14.5); RED CELL DISTRIBUTION WIDTH SD 46.5 fL (36.4-46.3); WHITE BLOOD COUNT 4.55 K/uL (4.8-10.8)
[2017-08-23] MEDS: ACETAMINOPHEN/HYDROCODONE ELIX 15 ML/CUP UDP PO PRN ×2 (06:32→12:55)
[2017-08-23 06:52] LABS: ALBUMIN 2.7 gm/dl (3.4-5.0); CREATININE 0.9 mg/dl (0.60-1.20); POTASSIUM 4.5 mmol/L (3.5-5.1)
[2017-08-23 06:55] LABS: TOTAL PROTEIN 6.2 gm/dl (6.4-8.2)
[2017-08-23] MEDS ORDERED: SODIUM CHLORIDE 0.9% 1000ML 1,000 ML IV SCH (07:45)
[2017-08-23] MEDS: NYSTATIN SUSP 500,000 U/5 ML UDC PO SCH ×4 (08:05→21:15)
[2017-08-23] MEDS: FLUOXETINE HCL 20 MG CAP PO SCH (08:05)
[2017-08-23] MEDS: ASPIRIN 81 MG ECTAB PO SCH (08:05)
[2017-08-23] MEDS: CLOPIDOGREL BISULFATE 75 MG TAB PO SCH (08:05)
[2017-08-23] MEDS: ATORVASTATIN 20 MG TAB PO SCH (08:05)
[2017-08-23] MEDS: PANTOprazole SOD 40 MG TAB PO SCH ×2 (08:33→21:15)
[2017-08-23] MEDS: LEVOTHYROXINE 150 MCG TAB PO SCH (08:34)
[2017-08-23] MEDS: ENOXAPARIN 40 MG/0.4 ML SYR SQ SCH (08:40)
--- NOTE | 2017-08-23 12:51 | Progress Note ---
Subjective Date of Service: Aug 23, 2017. Subjective Pt evaluation today including: conversation w/ patient, physical exam, lab review, review of studies, review of inpatient medication list Saw/examined the patient in room 277 She's doing better today, still has intermittent trouble with swallowing/ painful swallowing - though improving Denies shortness of breath/chest pain Received radiation therapy this morning blood pressure was running low this morning as per nursing staff Problem List Medical Problems: (1) Contusion of wrist, right Status: Acute (2) Dehydration Status: Acute (3) Inability to swallow Status: Acute (4) Lung cancer Status: Chronic Social History Problems: (1) S/P radiation therapy Status: Acute Review of Systems Constitutional: + weakness, No fever, No chills Respiratory: No cough, No sputum, No shortness of breath Cardiac: No chest pain Neurologic: + problem reported (dizziness) Heme: No abnormal bleeding/bruising Medications Current Inpatient Medications Medications (Trade) Dose Ordered Sig/Tami Route Start Time Stop Time Status Last Admin Dose Admin Ondansetron HCl (Zofran Inj) 4 mg Q6H PRN IV 08/21/17 14:45 09/20/17 14:44 Acetaminophen/ Hydrocodone Bitart (Lortab Elixir) 15 ml Q6H PRN PO 08/21/17 14:45 09/04/17 14:44 08/23/17 06:32 15 ML Lidocaine HCl (Viscous Lidocaine 2% Soln) 20 ml Q6H PRN MT 08/21/17 14:45 09/20/17 14:44 Acetaminophen 650 mg/Empty Bag 65 ml @ 260 mls/hr Q6H PRN IV 08/21/17 15:00 09/20/17 14:59 08/21/17 17:59 260 MLS/HR Aspirin (Ecotrin Tab) 81 mg QAM PO 08/22/17 09:00 09/21/17 08:59 08/23/17 08:05 81 MG Atorvastatin Calcium (Lipitor Tab) 20 mg QAM PO 08/22/17 09:00 09/21/17 08:59 08/23/17 08:05 20 MG Clopidogrel Bisulfate (plAVix TAB) 75 mg QAM PO 08/22/17 09:00 09/21/17 08:59 08/23/17 08:05 75 MG Fluoxetine HCl (Prozac Cap) 40 mg QAM PO 08/22/17 09:00 09/21/17 08:59 08/23/17 08:05 40 MG Enoxaparin Sodium (Lovenox Inj) 40 mg QAM SQ 08/22/17 09:00 09/21/17 08:59 Nystatin (Mycostatin Susp) 5 ml QID PO 08/21/17 17:00 08/31/17 16:59 08/23/17 08:05 5 ML Morphine Sulfate (MoRPHine SULFATE INJ) 4 mg Q4H PRN IV 08/21/17 18:45 09/04/17 18:44 Heparin Sodium (Porcine) (Heparin 100 Unit/ml 5ml Flush) 5 ml PRN PRN IV 08/22/17 10:45 09/21/17 10:44 08/23/17 06:49 5 ML Levothyroxine Sodium (Synthroid Tab) 150 mcg DAILYBB PO 08/23/17 06:30 09/22/17 06:29 08/23/17 08:34 150 MCG Pantoprazole Sodium (Protonix Tab) 40 mg BID PO 08/23/17 09:00 09/22/17 08:59 08/23/17 08:33 40 MG Sodium Chloride 1,000 ml @ 100 mls/hr Q10H IV 08/23/17 07:45 08/23/17 17:44 08/23/17 08:31 100 MLS/HR Objective Vital Signs Date Time Temp Pulse Resp B/P (MAP) Pulse Ox O2 Delivery O2 Flow Rate FiO2 08/23/17 11:49 36.5 71 16 104/70 (81) 95 08/23/17 08:51 36.7 70 18 104/67 (79) 95 Room Air 08/23/17 07:43 36.9 69 16 83/53 (63) 93 08/23/17 07:30 94 Room Air 08/23/17 04:00 Room Air 08/23/17 04:00 37.1 64 20 102/69 (80) 94 Room Air 08/23/17 00:00 Room Air 08/23/17 00:00 37.1 85 20 99/64 (76) 95 Room Air 08/22/17 20:00 95 Room Air 08/22/17 19:29 36.9 94 18 108/70 (83) 94 Room Air 08/22/17 16:00 95 Room Air 08/22/17 15:20 36.6 78 18 100/67 (78) 95 Room Air 08/22/17 13:55 36.7 77 16 97/63 (74) 94 Room Air 08/22/17 13:35 78 20 100/59 (73) 92 Room Air 08/22/17 13:25 36.7 110 20 98/85 (89) 95 Room Air 08/22/17 13:10 110 20 111/58 (75) 95 Room Air 08/22/17 12:53 110 16 156/126 (136) 100 Room Air Physical Exam General Appearance: no apparent distress Respiratory/Chest: chest non-tender, lungs clear, normal breath sounds, no respiratory distress, no accessory muscle use Cardiovascular: regular rate, rhythm, no edema, no gallop, no JVD, no murmur Extremities: normal range of motion, non-tender, normal inspection, no pedal edema, no calf tenderness Neurologic/Psychiatric: no motor/sensory deficits, alert, normal mood/affect Laboratory Results Last 24 Hours Test 08/23/17 05:43 White Blood Count 4.55 K/uL Red Blood Count 3.85 M/uL Hemoglobin 11.7 g/dL Hematocrit 34.4 % Mean Corpuscular Volume 89.4 fL Mean Corpuscular Hemoglobin 30.4 pg Mean Corpuscular Hemoglobin Concent 34.0 g/dl RDW Standard Deviation 46.5 fL RDW Coefficient of Variation 14.3 % Platelet Count 215 K/uL Mean Platelet Volume 9.0 fL Sodium Level 137 mmol/L Potassium Level 4.5 mmol/L Chloride Level 104 mmol/L Carbon Dioxide Level 26 mmol/L Anion Gap 6.0 mmol/L Blood Urea Nitrogen 8 mg/dl Creatinine 0.90 mg/dl Est Creatinine Clear Calc Drug Dose 60.4 ml/min Estimated GFR () 78.3 Estimated GFR (Non- 67.6 BUN/Creatinine Ratio 8.7 Random Glucose 98 mg/dl Calcium Level 8.0 mg/dl Total Bilirubin 0.3 mg/dl Aspartate Amino Transf (AST/SGOT) 10 U/L Alanine Aminotransferase (ALT/SGPT) 16 U/L Alkaline Phosphatase 129 U/L Total Protein 6.2 gm/dl Albumin 2.7 gm/dl Globulin 3.5 gm/dl Albumin/Globulin Ratio 0.8 Assessment and Plan This is a 66 year old female with a past medical history of malignant neoplasm of the R lower lobe of the lung with ongoing chemo and radiation, peripheral arterial disease, hypothyroidism - presents with dysphagia, odynophagia Dysphagia/Odynophagia Mild Radiation Esophagitis 08/23 - continue PPI BID, mechanical soft diet - continue Nystatin - continue IVFs for low blood pressure 08/22 - appreciate GI input - EGD performed, no zhou, no erosions/ulcerations noted - mild ring noted, but not enough to cause symptoms - possibly related to mild form of radiation esophagitis - will advance diet and monitor - will continue nystatin for oral thrush - will continue Protonix BID for now Right LL Lung Neoplasm - with ongoing radiation/chemotherapy - appreciate radiation/oncology input; radiation tx on 08/23 - outpatient oncology follow-up Peripheral Artery Disease - continue aspirin, Plavix, statin Hypothyroidism - increasing Synthroid to 150mcg DVT ppx - Lovenox FULL CODE
[2017-08-23] MEDS ORDERED: ZOLPIDEM TARTRATE 5 MG TAB PO PRN (18:15)
[2017-08-24 04:56] VITALS: BP 111/73; PULSE 80; TEMP 36.8; O2SAT 94
[2017-08-24] MEDS: LEVOTHYROXINE 150 MCG TAB PO SCH (05:11)
[2017-08-24] MEDS: ENOXAPARIN 40 MG/0.4 ML SYR SQ SCH (08:00)
[2017-08-24] MEDS: ATORVASTATIN 20 MG TAB PO SCH (08:04)
[2017-08-24] MEDS: ASPIRIN 81 MG ECTAB PO SCH (08:04)
[2017-08-24] MEDS: PANTOprazole SOD 40 MG TAB PO SCH (08:04)
[2017-08-24] MEDS: CLOPIDOGREL BISULFATE 75 MG TAB PO SCH (08:04)
[2017-08-24] MEDS: FLUOXETINE HCL 20 MG CAP PO SCH (08:04)
[2017-08-24] MEDS: NYSTATIN SUSP 500,000 U/5 ML UDC PO SCH ×2 (08:04→12:20)
[2017-08-24 08:12] VITALS: BP 111/74; PULSE 77; TEMP 36.6; O2SAT 92
[2017-08-24 11:04] VITALS: BP 111/74; PULSE 77; TEMP 36.6; O2SAT 92
[2017-08-24 11:37] VITALS: BP 110/70; PULSE 74; TEMP 36.6; O2SAT 96
--- NOTE | 2017-08-24 11:58 | Progress Note ---
Subjective Date of Service: Aug 24, 2017. Subjective Pt evaluation today including: conversation w/ patient, physical exam, lab review, review of studies, review of inpatient medication list Saw/examined the patient in room 411 Doing well, minimal swallowing issues Denies fevers/chills Blood pressure improved since yesterday Problem List Medical Problems: (1) Contusion of wrist, right Status: Acute (2) Dehydration Status: Acute (3) Inability to swallow Status: Acute (4) Lung cancer Status: Chronic Social History Problems: (1) S/P radiation therapy Status: Acute Review of Systems Constitutional: No fever, No chills, No weakness ENT: + trouble swallowing (improving) Respiratory: No shortness of breath Cardiac: No chest pain Abdomen: No pain, No nausea, No vomiting, No diarrhea, No constipation, No GI bleeding Medications Current Inpatient Medications Medications (Trade) Dose Ordered Sig/Tami Route Start Time Stop Time Status Last Admin Dose Admin Ondansetron HCl (Zofran Inj) 4 mg Q6H PRN IV 08/21/17 14:45 09/20/17 14:44 Acetaminophen/ Hydrocodone Bitart (Lortab Elixir) 15 ml Q6H PRN PO 08/21/17 14:45 09/04/17 14:44 08/23/17 12:55 15 ML Lidocaine HCl (Viscous Lidocaine 2% Soln) 20 ml Q6H PRN MT 08/21/17 14:45 09/20/17 14:44 Acetaminophen 650 mg/Empty Bag 65 ml @ 260 mls/hr Q6H PRN IV 08/21/17 15:00 09/20/17 14:59 08/21/17 17:59 260 MLS/HR Aspirin (Ecotrin Tab) 81 mg QAM PO 08/22/17 09:00 09/21/17 08:59 08/24/17 08:04 81 MG Atorvastatin Calcium (Lipitor Tab) 20 mg QAM PO 08/22/17 09:00 09/21/17 08:59 08/24/17 08:04 20 MG Clopidogrel Bisulfate (plAVix TAB) 75 mg QAM PO 08/22/17 09:00 09/21/17 08:59 08/24/17 08:04 75 MG Fluoxetine HCl (Prozac Cap) 40 mg QAM PO 08/22/17 09:00 09/21/17 08:59 08/24/17 08:04 40 MG Enoxaparin Sodium (Lovenox Inj) 40 mg QAM SQ 08/22/17 09:00 09/21/17 08:59 Nystatin (Mycostatin Susp) 5 ml QID PO 08/21/17 17:00 08/31/17 16:59 08/24/17 08:04 5 ML Morphine Sulfate (MoRPHine SULFATE INJ) 4 mg Q4H PRN IV 08/21/17 18:45 09/04/17 18:44 Heparin Sodium (Porcine) (Heparin 100 Unit/ml 5ml Flush) 5 ml PRN PRN IV 08/22/17 10:45 09/21/17 10:44 08/23/17 06:49 5 ML Levothyroxine Sodium (Synthroid Tab) 150 mcg DAILYBB PO 08/23/17 06:30 09/22/17 06:29 08/24/17 05:11 150 MCG Pantoprazole Sodium (Protonix Tab) 40 mg BID PO 08/23/17 09:00 09/22/17 08:59 08/24/17 08:04 40 MG Zolpidem Tartrate (Ambien Tab) 5 mg HS PRN PO 08/23/17 18:15 09/22/17 18:14 08/23/17 21:15 5 MG Objective Vital Signs Date Time Temp Pulse Resp B/P (MAP) Pulse Ox O2 Delivery O2 Flow Rate FiO2 08/24/17 11:37 36.6 74 16 110/70 (83) 96 08/24/17 11:04 36.6 77 16 92 Room Air 08/24/17 08:12 36.6 77 16 111/74 (86) 92 Room Air 08/24/17 08:00 Room Air 08/24/17 04:56 36.8 80 20 111/73 (86) 94 Room Air 08/24/17 00:00 Room Air 08/23/17 22:52 36.8 76 16 98/65 (76) 95 Room Air 08/23/17 19:43 36.7 71 20 103/68 (80) 94 Room Air 08/23/17 16:30 Room Air 08/23/17 15:20 36.6 69 16 100/67 (78) 95 08/23/17 14:12 36.5 71 16 95 Physical Exam General Appearance: no apparent distress Respiratory/Chest: chest non-tender, lungs clear, normal breath sounds, no respiratory distress, no accessory muscle use Cardiovascular: regular rate, rhythm, no edema, no murmur Abdomen: normal bowel sounds, non tender, soft Neurologic/Psychiatric: no motor/sensory deficits, alert, normal mood/affect Assessment and Plan This is a 66 year old female with a past medical history of malignant neoplasm of the R lower lobe of the lung with ongoing chemo and radiation, peripheral arterial disease, hypothyroidism - presents with dysphagia, odynophagia Dysphagia/Odynophagia Mild Radiation Esophagitis 08/24 - will d/c home today with PPI BID - mechanical soft, slippery diet 08/23 - continue PPI BID, mechanical soft diet - continue Nystatin - continue IVFs for low blood pressure 08/22 - appreciate GI input - EGD performed, no zhou, no erosions/ulcerations noted - mild ring noted, but not enough to cause symptoms - possibly related to mild form of radiation esophagitis - will advance diet and monitor - will continue nystatin for oral thrush - will continue Protonix BID for now Right LL Lung Neoplasm - with ongoing radiation/chemotherapy - appreciate radiation/oncology input; radiation tx on 08/23 - outpatient oncology follow-up Peripheral Artery Disease - continue aspirin, Plavix, statin Hypothyroidism - increasing Synthroid to 150mcg DVT ppx - Lovenox FULL CODE
[2017-08-24] MEDS ORDERED: NYSS5 PO (12:04)
[2017-08-24] MEDS ORDERED: PRT40 PO (12:04)
[2017-08-24] MEDS ORDERED: LEVO150T9 PO (12:04)
--- NOTE | 2017-08-24 12:07 | Discharge Instructions ---
Discharge Instructions Date of Service Aug 24, 2017. Admission Reason for Admission: Generalized Weakness; Intolerance, Food Discharge Discharge Diagnosis / Problem: Generalized Weakness, Difficulty swallowing, radiation esophagitis Discharge Goals Goal(s): Decrease discomfort, Improve function Activity Recommendations Activity Limitations: resume your previous activity . Instructions / Follow-Up Instructions / Follow-Up Please follow-up with Dr. Bates on August 29 at 10:45AM * Take Protonix twice daily * Your dose of Synthroid is increased to 150mcg; recheck thyroid levels in 6 weeks * Use nystatin for another 3-5 days Current Hospital Diet Patient's current hospital diet: Regular Diet Discharge Diet Recommended Diet: Regular Diet Procedures Procedures Performed: EGD Pending Studies Studies pending at discharge: no Medical Emergencies . Who to Call and When: Medical Emergencies: If at any time you feel your situation is an emergency, please call 911 immediately. . Non-Emergent Contact Non-Emergency issues call your: Primary Care Provider, Oncologist . . "Provider Documentation" section prepared by Bertrand Spring. .
--- NOTE | 2017-08-24 12:12 | Discharge Summary ---
Discharge Summary Date of Service Aug 24, 2017. Discharge Summary Admission Date: Aug 21, 2017 at 15:13 Discharge Date: Aug 24, 2017 Discharge Disposition: Home Principal Diagnosis: Mild Radiation Esophagitis Oral Thrush Lung CA with ongoing chemo/radiation Medication Reconciliation New Medications: Nystatin (Nystatin) 5 Ml Susp 5 ML PO QID for 5 Days, #100 ML Pantoprazole (Pantoprazole Sodium) 40 Mg Tab 40 MG PO BID for 30 Days, #60 TAB Changed Medications: Levothyroxine Sodium (Levothyroxine Sodium) 150 Mcg Tab 1 TAB PO DAILY for 30 Days, #30 TAB 1 Refill (Changed from: Levothyroxine Sodium 137 Mcg Tab 137 Mcg PO QAM 30 Days #30 TAB Ref 5) Continued Medications: Ascorbic Acid (Vitamin C) 500 Mg Cap 500 MG PO QAM Aspirin (Aspir-81) 81 Mg Tab 81 MG PO QAM Atorvastatin (Lipitor) 10 Mg Tab 20 MG PO QAM, TAB Clopidogrel (Plavix) 75 Mg Tab 75 MG PO QAM, 0 Refills Dexamethasone (Decadron) Unknown Strength Tab 1 DOSE PO UD, TAB TAKES THE NIGHT BEFORE CHEMO THERAPY Fluoxetine (Prozac) 40 Mg Cap 40 MG PO QAM, CAP Ondansetron Hcl (Zofran) 8 Mg Tab 8 MG PO Q8 PRN for Nausea, TAB Oxycodone Immediate Rel Tab (Roxicodone Ir) 5 Mg Tab 1 TAB PO Q6H PRN for Pain for 30 Days, #120 TAB Prochlorperazine Maleate (Compazine) 10 Mg Tab 10 MG PO Q6 PRN for Nausea for 7 Days, #30 TAB 3 Refills Admission Information HPI (per Admitting provider): The patient is a 66-year-old female with lung cancer, stage III, who is currently being treated with chemotherapy and radiation. Her radiation treatments started 2 weeks ago. As of 3 days ago she described having some loss of voice and feeling that food and liquids were getting stuck low down in her esophagus. This was associated with substernal chest pain in that area without radiation. This was also associated with pain with swallowing. She subsequently has not eaten or drank much in the last 3 days and developed some lightheadedness today as well as some generalized weakness prompting ER visit. She denies any associated symptoms with the chest pain including no sweating or shortness of breath. She does have a history of peripheral vascular disease but no history of CAD and is currently taking aspirin and Plavix as well as Lipitor. She is undergoing chemotherapy with carboplatin and paclitaxel weekly with last dose on 08/17. She was presenting to radiation oncology this morning but did not receive the treatment and was sent to the ER instead. Upon arrival to the ER she was noted to have a blood pressure of 97 over's T4 and a heart rate of 83 she was saturating well on room air and was afebrile. She was given IV fluids with an improvement in her blood pressure into the 120s systolic. She otherwise denies any fever, chills, nausea, vomiting, diarrhea, changes in her stool, headaches, or recent illnesses. She is still an active smoker. Physical Exam (per Admitting): General Appearance: WD/WN, + mild distress (Generalized malaise) Head: normocephalic, atraumatic Eyes: normal inspection, PERRL, + pertinent finding (Injected conjunctivae bilaterally, nonicteric sclerae) ENT: normal ENT inspection, hearing grossly normal, pharynx normal Neck: supple, no adenopathy, no JVD, trachea midline Respiratory/Chest: lungs clear, normal breath sounds, no respiratory distress, no accessory muscle use, + pertinent finding (Tenderness in the midsternal region to palpation) Cardiovascular: regular rate, rhythm, no edema, no gallop, no JVD, no murmur , normal peripheral pulses Abdomen/GI: normal bowel sounds, non tender, soft, no organomegaly Back: normal inspection Extremities/Musculoskelatal: normal inspection, no calf tenderness, no pedal edema, normal range of motion Neurologic/Psych: tower cleaner II-XII nml as tested, no motor/sensory deficits, alert , normal mood/affect, oriented x 3 Skin: normal color, warm/dry, no rash Hospital Course This is a 66 year old female with a past medical history of malignant neoplasm of the R lower lobe of the lung with ongoing chemo and radiation, peripheral arterial disease, hypothyroidism - presents with dysphagia, odynophagia Dysphagia/Odynophagia Mild Radiation Esophagitis 08/24 - will d/c home today with PPI BID - mechanical soft, slippery diet 08/23 - continue PPI BID, mechanical soft diet - continue Nystatin - continue IVFs for low blood pressure 08/22 - appreciate GI input - EGD performed, no zhou, no erosions/ulcerations noted - mild ring noted, but not enough to cause symptoms - possibly related to mild form of radiation esophagitis - will advance diet and monitor - will continue nystatin for oral thrush - will continue Protonix BID for now Right LL Lung Neoplasm - with ongoing radiation/chemotherapy - appreciate radiation/oncology input; radiation tx on 08/23 - outpatient oncology follow-up Peripheral Artery Disease - continue aspirin, Plavix, statin Hypothyroidism - increasing Synthroid to 150mcg DVT ppx - Lovenox FULL CODE Total time spent on discharge = 35 minutes This includes examination of the patient, discharge planning, medication reconciliation, and communication with other providers. Discharge Instructions Please follow-up with Dr. Bates on August 29 at 10:45AM * Take Protonix twice daily * Your dose of Synthroid is increased to 150mcg; recheck thyroid levels in 6 weeks * Use nystatin for another 3-5 days
== END 2017-08-24 12:15 | disposition home or self-care (01) | DRG 392 ==
LOC: EDBD 11:01 → C.EDC 11:02 → EDBEDREQSVC 15:12 → C.MED 15:13 → ENRESERV 15:38 → C.4E 08-23 14:39
PROVIDERS: ADMIT Hospitalist; ATTEND Family Medicine
PROC: 0DJ08ZZ Inspection of Upper Intestinal Tract, Via Natural or Artificial Opening Endoscopic (ICD-10-PCS; principal; 2017-08-22 12:02)
DX: K20.8 Other esophagitis (principal); C34.31 Malignant neoplasm of lower lobe, right bronchus or lung; B37.0 Candidal stomatitis; T45.1X5A Adverse effect of antineoplastic and immunosuppressive drugs, initial encounter; R13.10 Dysphagia, unspecified; R53.1 Weakness; E03.9 Hypothyroidism, unspecified; I73.9 Peripheral vascular disease, unspecified; F17.200 Nicotine dependence, unspecified, uncomplicated; Z79.82 Long term (current) use of aspirin; Z79.899 Other long term (current) drug therapy; Z92.3 Personal history of irradiation; Z80.6 Family history of leukemia

== ENCOUNTER 2017-09-04 11:05 | Emergency (ER) | payer OTHER ==
[~2017-09-04 11:05] MED LIST changes: +DXM/4 PO; -LEVO137T3 PO; +LEVO150T9 PO; +MAGIC1 PO; +NYSS5 PO; -OXYC-57 PO; +OXYC1TAB3 PO; +PRT40 PO
[2017-09-04 11:19] VITALS: TEMP 36.7; Ht 160 cm
[2017-09-04] MEDS ORDERED: SODIUM CHLORIDE 0.9% 1000ML 1,000 ML IV ONE (11:47)
--- NOTE | 2017-09-04 12:09 | DIAGNOSTIC IMAGING REPORT ---
CHEST ONE VIEW PORTABLE CLINICAL HISTORY: Sepsis COMPARISON STUDY: 08/21/2017 FINDINGS: The heart remains normal in size. There is a left-sided A-Port catheter. There is a 55mm right lower lung zone pulmonary mass. There is no lobar consolidation. There are no pleural effusions. There is mediastinal widening suspicious for adenopathy.[ IMPRESSION: 1. Right paratracheal adenopathy 2. Persistent 55 mm right lower lung zone pulmonary mass Electronically signed by: Dean Carrizales M.D. 09/04/2017 12:08 PM Dictated Date/Time: 09/04/2017 12:06 PM
[2017-09-04 12:25] LABS: BASO % 0.2 %; BASO ABS # 0.01 K/uL (0-0.2); EOS % 2.2 %; EOS ABS # 0.09 K/uL (0-0.5); IG# 0.02 K/uL (0.00-0.02); LYMPH % 11.5 %; LYMPH ABS # 0.46 K/uL (1.2-3.4); MEAN CORPUSCULAR HEMOGLOBIN 30.4 pg (25-34); MEAN CORPUSCULAR HGB CONC 34.2 g/dl (32-36); MEAN PLATELET VOLUME 9.1 fL (7.4-10.4); MONO ABS # 0.32 K/uL (0.11-0.59); NEUT % 77.6 %; NEUT ABS # 3.11 K/uL (1.4-6.5); PLATELET COUNT 116 K/uL (130-400); RED CELL DISTRIBUTION WIDTH CV 15.6 % (11.5-14.5); RED CELL DISTRIBUTION WIDTH SD 49.3 fL (36.4-46.3); WHITE BLOOD COUNT 4.01 K/uL (4.8-10.8)
[2017-09-04 12:27] LABS: PTT PATIENT 23.2 SECONDS (21.0-31.0)
[2017-09-04] MEDS ORDERED: SODIUM CHLORIDE 0.9% 1000ML 1,000 ML IV STA (12:29)
[2017-09-04 12:43] LABS: ALBUMIN 3.2 gm/dl (3.4-5.0); ALT/SGPT 24 U/L (12-78); AST/SGOT 17 U/L (15-37); BLOOD UREA NITROGEN 16 mg/dl (7-18); CALCIUM 8.2 mg/dl (8.5-10.1); CARBON DIOXIDE 28 mmol/L (21-32); CREATININE 0.96 mg/dl (0.60-1.20); GLUCOSE 88 mg/dl (70-99); POTASSIUM 4.3 mmol/L (3.5-5.1); SODIUM 136 mmol/L (136-145)
[2017-09-04 12:47] LABS: ALKALINE PHOSPHATASE 124 U/L (45-117); TOTAL PROTEIN 6.9 gm/dl (6.4-8.2)
[2017-09-04] MEDS ORDERED: ALBUTEROL 0.083% NEBU SOLN 3 ML VIAL INH STA ×2 (13:05→13:27)
[2017-09-04 14:26] LABS: INFLUENZA B ANTIGEN Neg for Influ B (NEG)
--- NOTE | 2017-09-04 14:29 | EMERGENCY ROOM VISIT NOTE ---
History Report prepared by Sylvia: Misha Severino Under the Supervision of: Dr. Jose Jenkins M.D. First contact with patient: 11:40 Chief Complaint: WEAKNESS Stated Complaint: WEAKNESS, FATIGUE, S/P CHEMO 08-31-17 History of Present Illness The patient is a 66 year old female who presents to the Emergency Room with complaints of constant generalized weakness beginning yesterday. She is currently receiving chemotherapy and radiation therapy for lung cancer. The patient's most recent chemotherapy was four days ago. She was seen for radiation today, and was referred to the ED for hypotension. She denies abdominal pain, diarrhea, cough, fevers, or chills. The patient states that she has been eating and drinking normally. Source of History: patient Onset: Yesterday Position: other (generalized) Quality: other (weakness) Timing: constant Associated Symptoms: No fevers, No chills, No cough, No abdominal pain, No diarrhea Review of Systems See HPI for pertinent positives & negatives. A total of 10 systems reviewed and were otherwise negative. 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 (2) Generalized weakness (3) Intolerance, food (4) Lung cancer (5) Peripheral vascular disease Surgical Problems: (1) History of hysterectomy (2) History of partial thyroidectomy (3) History of tubal ligation Family History FH: CAD (coronary artery disease) FATHER FH: leukemia MOTHER Social History Smoking Status: Never Smoker Drug Use: none Marital Status: Occupation Status: employed Current/Historical Medications Scheduled Ascorbic Acid (Vitamin C), 500 MG PO QAM Aspirin (Aspir-81), 81 MG PO QAM Atorvastatin (Lipitor), 20 MG PO QAM Clopidogrel (Plavix), 75 MG PO QAM Dexamethasone (Decadron), 1 DOSE PO UD Fluoxetine (Prozac), 40 MG PO QAM Levothyroxine Sodium (Levothyroxine Sodium), 1 TAB PO DAILY Nystatin (Nystatin), 5 ML PO QID Pantoprazole (Pantoprazole Sodium), 40 MG PO BID Scheduled PRN Ondansetron Hcl (Zofran), 8 MG PO Q8 PRN for Nausea Prochlorperazine Maleate (Compazine), 10 MG PO Q6 PRN for Nausea Allergies Coded Allergies: No Known Allergies (Unverified , 09/04/17) Physical Exam Vital Signs Date Time Temp Pulse Resp B/P (MAP) Pulse Ox O2 Delivery O2 Flow Rate FiO2 09/04/17 14:54 111 20 101/56 95 09/04/17 14:15 72 20 104/63 95 Room Air 09/04/17 13:01 80 20 97/59 94 Room Air 09/04/17 11:19 36.7 102 20 85/61 94 Room Air Physical Exam GENERAL: Awake, alert, well-appearing, in no acute distress HENT: Normocephalic, atraumatic. Oropharynx unremarkable. EYES: Normal conjunctiva. Sclera non-icteric. NECK: Supple. No nuchal rigidity. FROM. No JVD. RESPIRATORY: Clear to auscultation. CARDIAC: Regular rate, normal rhythm. Extremities warm and well perfused. Pulses equal. ABDOMEN: Soft, non-distended. No tenderness to palpation. No rebound or guarding. No masses. RECTAL: Deferred. MUSCULOSKELETAL: Chest examination reveals no tenderness. Port in place. The back is symmetrical on inspection without obvious abnormality. There is no CVA tenderness to palpation. No joint edema. LOWER EXTREMITIES: Calves are equal size bilaterally and non-tender. No edema. No discoloration. NEURO: Normal sensorium. No sensory or motor deficits noted. SKIN: No rash or jaundice noted. Medical Decision & Procedures ER Provider Diagnostic Interpretation: Radiology results as stated below per my review and radiologist interpretation: CHEST ONE VIEW PORTABLE FINDINGS: The heart remains normal in size. There is a left-sided A-Port catheter. There is a 55mm right lower lung zone pulmonary mass. There is no lobar consolidation. There are no pleural effusions. There is mediastinal widening suspicious for adenopathy.[ IMPRESSION: 1. Right paratracheal adenopathy 2. Persistent 55 mm right lower lung zone pulmonary mass Electronically signed by: Dean Carrizales M.D. 09/04/2017 12:08 PM Laboratory Results 09/04/17 12:00 Red Blood Count 4.27, Mean Corpuscular Volume 89.0, Mean Corpuscular Hemoglobin 30.4, Mean Corpuscular Hemoglobin Concent 34.2, Mean Platelet Volume 9.1, Neutrophils (%) (Auto) 77.6, Lymphocytes (%) (Auto) 11.5, Monocytes (%) (Auto) 8.0, Eosinophils (%) (Auto) 2.2, Basophils (%) (Auto) 0.2, Neutrophils # (Auto) 3.11, Lymphocytes # (Auto) 0.46, Monocytes # (Auto) 0.32, Eosinophils # (Auto) 0.09, Basophils # (Auto) 0.01 09/04/17 12:00 Test 09/04/17 11:56 09/04/17 12:00 09/04/17 13:00 Bedside Lactic Acid Venous 1.56 mmol/L (0.90-1.70) White Blood Count 4.01 K/uL (4.8-10.8) Red Blood Count 4.27 M/uL (4.2-5.4) Hemoglobin 13.0 g/dL (12.0-16.0) Hematocrit 38.0 % (37-47) Mean Corpuscular Volume 89.0 fL (80-100) Mean Corpuscular Hemoglobin 30.4 pg (25-34) Mean Corpuscular Hemoglobin Concent 34.2 g/dl (32-36) Platelet Count 116 K/uL (130-400) Mean Platelet Volume 9.1 fL (7.4-10.4) Neutrophils (%) (Auto) 77.6 % Lymphocytes (%) (Auto) 11.5 % Monocytes (%) (Auto) 8.0 % Eosinophils (%) (Auto) 2.2 % Basophils (%) (Auto) 0.2 % Neutrophils # (Auto) 3.11 K/uL (1.4-6.5) Lymphocytes # (Auto) 0.46 K/uL (1.2-3.4) Monocytes # (Auto) 0.32 K/uL (0.11-0.59) Eosinophils # (Auto) 0.09 K/uL (0-0.5) Basophils # (Auto) 0.01 K/uL (0-0.2) RDW Standard Deviation 49.3 fL (36.4-46.3) RDW Coefficient of Variation 15.6 % (11.5-14.5) Immature Granulocyte % (Auto) 0.5 % Immature Granulocyte # (Auto) 0.02 K/uL (0.00-0.02) Prothrombin Time 10.0 SECONDS (9.0-12.0) Prothromb Time International Ratio 1.0 (0.9-1.1) Activated Partial Thromboplast Time 23.2 SECONDS (21.0-31.0) Partial Thromboplastin Ratio 0.9 Anion Gap 6.0 mmol/L (3-11) Estimated GFR () 72.4 Estimated GFR (Non- 62.5 BUN/Creatinine Ratio 16.2 (10-20) Calcium Level 8.2 mg/dl (8.5-10.1) Total Bilirubin 0.4 mg/dl (0.2-1) Aspartate Amino Transf (AST/SGOT) 17 U/L (15-37) Alanine Aminotransferase (ALT/SGPT) 24 U/L (12-78) Alkaline Phosphatase 124 U/L (45-117) Total Protein 6.9 gm/dl (6.4-8.2) Albumin 3.2 gm/dl (3.4-5.0) Globulin 3.7 gm/dl (2.5-4.0) Albumin/Globulin Ratio 0.9 (0.9-2) Influenza Type A Antigen Neg for Influ A (NEG) Influenza Type B Antigen Neg for Influ B (NEG) Labs reviewed by ED physician. Medications Administered Medications (Trade) Dose Ordered Sig/Tami Route Start Time Stop Time Status Last Admin Dose Admin Sodium Chloride 1,000 ml @ 999 mls/hr Q1H1M ONCE IV 09/04/17 11:47 09/04/17 12:51 DC 09/04/17 11:47 999 MLS/HR Sodium Chloride 1,000 ml @ 999 mls/hr Q1H1M STAT IV 09/04/17 12:29 09/04/17 13:29 DC 09/04/17 12:29 999 MLS/HR Albuterol Sulfate (Ventolin 0.083% 2.5MG/3ML Neb) 2.5 mg NOW STAT INH 09/04/17 13:05 09/04/17 13:06 DC 09/04/17 13:12 2.5 MG Albuterol Sulfate (Ventolin 0.083% 2.5MG/3ML Neb) 2.5 mg NOW STAT INH 09/04/17 13:27 09/04/17 13:28 DC 09/04/17 13:34 2.5 MG Heparin Sodium (Porcine) (Heparin 100 Unit/ml 5ml Flush) 5 ml STK-MED ONCE .ROUTE 09/04/17 14:24 09/04/17 14:25 DC 09/04/17 14:24 5 ML ED Course 1141: Past medical records reviewed. The patient was evaluated in room B10. A complete history and physical examination was performed. 1147: Ordered Sodium Chloride 1000 ml @ 999 mls/hr IV. 1229: Ordered Sodium Chloride 1000 ml @ 999 mls/hr IV. 1305: Ordered Ventolin 0.083% 2.5 mg/3 mL Neb 2.5 mg INH. 1327: Ordered Ventolin 0.083% 2.5 mg/3 mL Neb 2.5 mg INH. 1425: Upon reexamination the patient is resting comfortably. I discussed results and treatment plan with the patient. She verbalizes agreement and understanding. The patient is ready for discharge. Medical Decision Differential diagnosis: Etiologies such as metabolic, infection, hypo/hyperglycemia, electrolyte abnormalities, cardiac sources, intracerebral event, toxicologic, neurologic, as well as others were entertained. This is a 66-year-old female who presents the emergency department sent in by her oncologist over concerns about hypotension at radiation treatment today. The patient reports she is feeling dizzy however she has no other symptoms. She denies any chest pain or shortness of breath or abdominal pain. Serial abdominal examinations were performed on the patient in the emergency department and at no time to the patient exhibited a surgical abdomen. Due to wheezing the patient was given a breathing treatment here in the emergency department. She was also given normal saline bolus 2. Repeat examination revealed much improvement with the patient's symptoms. Based on the patient's laboratory work as well as her improvement with IV fluids and the fact that she is taking p.o. fluid I feel that she can be safely discharged home as the patient is adamant she does not wish to be admitted. However I stressed the need to return if she develops dizziness and weakness. Patient was in agreement with the treatment plan. Medication Reconcilliation Current Medication List: was personally reviewed by me Blood Pressure Screening Patient's blood pressure: Low blood pressure Blood pressure disposition: Did not require urgent referral Impression Primary Impression: Dehydration Additional Impression: Orthostatic hypotension Scribe Attestation The scribe's documentation has been prepared under my direction and personally reviewed by me in its entirety. I confirm that the note above accurately reflects all work, treatment, procedures, and medical decision making performed by me. Departure Information Dispostion Home / Self-Care Referrals Susy Bates D.O. (PCP) Forms HOME CARE DOCUMENTATION FORM, IMPORTANT VISIT INFORMATION Patient Instructions ED Dehydration, ED Hypotension Orthostatic, My [facility] Additional Instructions Increase fluids over next 48 hours Follow up with PCP Return for worsening symptoms You have been examined and treated today on an emergency basis only. This is not a substitute for, or an effort to provide, complete comprehensive medical care. It is impossible to recognize and treat all injuries or illnesses in a single emergency department visit. It is therefore important that you follow up closely with Dr Bates. Call as soon as possible for an appointment. Thank you for your time and consideration. I look forward to speaking with you again soon. Please don't hesitate to call us if you have any questions. Problem Qualifiers
[2017-09-04 14:54] VITALS: BP 101/56; PULSE 111; O2SAT 95
== END 2017-09-04 14:46 | disposition home or self-care (01) ==
LOC: C.EDB 11:06
DX: E86.0 Dehydration (principal); I95.1 Orthostatic hypotension; C34.90 Malignant neoplasm of unspecified part of unspecified bronchus or lung; Z79.82 Long term (current) use of aspirin; Z79.899 Other long term (current) drug therapy